=== PATIENT | male | born 1960 | race Caucasian/White ===

== ENCOUNTER 2016-03-10 08:27 | Outpatient (CLI) | payer MEDICARE ==
[~2016-03-10] VITALS: Ht 182.9 cm; Wt 79.5 kg
--- NOTE | ~2016-03-10 | HEMODYNAMI ---
PATIENT:JEANNIE DODSON MEDICAL RECORD: [id number] : 62 LOCATION:[facility] D.2105 ADMISSION DATE: 03/10/16 Generatedon:03/10/201618:16 Patient name: JEANNIE DODSON Patient #: [id number] SSN: D OB: 1960 Date of study: 03/10/2016 Page: Of Hemodynamic Procedure Report Patient Data Patient Demographics Procedure consent was obtained First Name: JEANNIE Gender: Male Last Name: IVORY : 1960 [facility] Initial: C Age: 55 year(s) Patient #: [id number] Race: Unknown Additional ID: [id number] Contact details Address: [address] [place] [address] State: [place] City: [place] Zip code: [address] Admission Admission Data Admission Date: 03/10/2016 Admission Time: 8:27 Room #: 2105 Weight (lbs.): 160 Weight (kg.): 72.57 Procedure Procedure Types Cath Procedure Peripheral Cath Diagnostic Procedure Cath Peripheral Liver TIPSS Procedure Description Procedure Date Procedure Date: 03/10/2016 Procedure Start Time: 14:25 Procedure Staff Name Function Robert Combs MD Performing Physician Rand Foreman HVAC SALES ENGINEER Additional personnel Jose Luis Bass MD Additional personnel Jagdish Andersen RT Scrub Kallie Evans RN Nurse Monserrat Nazario RT Method Consultant Monserrat Nazario RT Monitor Procedure Data Cath Procedure Fluoroscopy Diagnostic fluoroscopy Total fluoroscopy Time: time: 64.5 min 64.5 min Diagnostic fluoroscopy Total fluoroscopy dose: dose: 1988.48 mGy 1988.48 mGy Contrast Material Contrast Material Type Amount (ml) Isovue 300 200 Diagnostic catheters Device Type Used For End Catheter Placement Merit UHF Pigtail VESSEL SIZING 5Fr 65CM catheter Merit Impress KA2 5Fr 65CM catheter Hemodynamics Rest Heart Rate: 105 (bpm) Snapshots Pre Cath Intra NCS Post Cath Vital Signs Time Heart Resp NIBP Rhythm Pain Sedation Rate (ipm) (mmHg) Status Level (bpm) 16:55:46 88 10 Measuring NSR 0 (11) , 10(A) No pain 16:57:10 89 10 Time NSR 0 (11) , 10(A) Exceeded No pain 17:02:09 89 10 Measuring NSR 0 (11) , 10(A) No pain 17:03:33 88 10 Time NSR 0 (11) , 10(A) Exceeded No pain 17:08:32 89 10 Measuring NSR 0 (11) , 10(A) No pain 17:09:56 87 9 Time NSR 0 (11) , 10(A) Exceeded No pain 17:14:55 90 10 Measuring NSR 0 (11) , 10(A) No pain 17:16:17 90 10 Time NSR 0 (11) , 10(A) Exceeded No pain 17:20:17 90 10 Aborted NSR 0 (11) , 10(A) No pain 17:25:16 88 10 Measuring NSR 0 (11) , 10(A) No pain 17:26:40 89 10 Time NSR 0 (11) , 10(A) Exceeded No pain 17:30:11 88 10 Aborted NSR 0 (11) , 10(A) No pain 17:35:10 89 10 Measuring NSR 0 (11) , 10(A) No pain 17:36:34 88 9 Time NSR 0 (11) , 10(A) Exceeded No pain 17:41:33 89 9 Measuring NSR 0 (11) , 10(A) No pain 17:42:57 89 9 Time NSR 0 (11) , 10(A) Exceeded No pain 17:47:56 89 10 Measuring NSR 0 (11) , 10(A) No pain 17:49:20 88 9 Time NSR 0 (11) , 10(A) Exceeded No pain 17:54:19 91 10 Measuring NSR 0 (11) , 10(A) No pain 17:55:43 90 9 Time NSR 0 (11) , 10(A) Exceeded No pain 17:59:42 89 10 Aborted NSR 0 (11) , 10(A) No pain 18:04:41 90 9 Measuring NSR 0 (11) , 10(A) No pain 18:06:05 90 9 Time NSR 0 (11) , 10(A) Exceeded No pain 18:11:04 93 18 Measuring NSR 0 (11) , 10(A) No pain 18:11:23 93 15 Aborted NSR 0 (11) , 10(A) No pain 18:16:22 95 7 Measuring NSR 0 (11) , 10(A) No pain Procedure Log Time Note 13:17:38 Patient Weight : 160 kg 13:18:23 Use device set IR Diagnostic 13:18:25 Sterile Angiographic Pack opened to sterile field. 13:18:28 Bag Decanter opened to sterile field. 13:21:07 KIT, TRANSJUGULAR LIVER ACCESS R opened to sterile field. 13:21:08 TUBING, CONTRAST INJCTN HI PRES opened to sterile field. 13:21:09 [employer] 260L glide wire opened to sterile field. 13:21:11 [employer]s AWAN 260 guide wire opened to sterile field. 13:21:12 Micropuncture VSI 4FR kit opened to sterile field. 13:21:34 A [employer] F Pigtail VESSEL SIZING 5Fr 65CM catheter was advanced over the wire and used for . 13:30:01 Time tracking: Regular hours 13:40:20 [id number] 8FR CATH DRAIN TRAY opened to sterile field. 13:40:27 - 14:00:40 Physician arrived 14:04:54 STOPCOCK 3-WAY LARGE BORE opened to sterile field. 14:05:33 TUBING, CONTRAST INJCTN HI PRES opened to sterile field. 14:05:34 TUBING, CONTRAST INJCTN HI PRES opened to sterile field. 14:10:59 Final Timeout: patient, procedure, and site verified with staff and physician. All members of the team are in agreement. 14:11:57 Cook NASREENSON 145cm guide wire opened to sterile field. 14:12:08 Magali 5Fr OTW embolectomy catheter opened to sterile field. 14:22:09 Plan of Care:Hemodynamics will remain stable., Cardiac rhythm will remain stable., Comfort level will be maintained., Respiratory function will remain adequate., Patient/ family verbilizes understanding of procedure., Procedure tolerated without complication., Recovers from procedure without complications.. 14:22:11 Correct patient and procedure confirmed by team. 14::13 Signed procedure consent form obtained from patient. 14::15 ECG and BP/O2 sat monitors applied to patient. 14::17 Vital chart was started 14::18 Baseline sample Acquired. 14:22:19 Full Disclosure recording started 14::20 - 14::31 H&P Date Dictated: 03/10/2016 Within 30 days and on chart.. 14:22:34 Pre-procedure instructions explained to patient. 14:22:35 Pre-op teaching completed and patient verbalized understanding. 14:22:38 Family in waiting room. 14::41 Patient NPO since Midnight. 14:22:48 - 14:22:50 ----Pre-sedation anethsthesia assessment.---- 14::30 see anesthesia notes for monitoring of patient during procedure 14:23:33 - 14:23:58 --------ALL STOP TIME OUT------ 14:25:06 Physical assessment completed. ASA score P 3 - A patient with severe systemic disease as per Rand Foreman CRNA. 14:25:16 Sedation plan: General Anesthesia General Anesthesia 14:25:27 Procedure started. 14:25:40 Local anesthetic to right IJ vein with Lidocaine 1% by Robert Combs MD.INITIAL ACCESS ONLY 14:25:42 Venous access obtained using ultrasound guidance. 14:30:49 A Merit Impress KA2 5Fr 65CM catheter was advanced over the wire and used for . 14:31:28 CONNECTING TUBE FOR DRAINAGE BAG opened to sterile field. 14:38:49 Ashley Sci AMPLATZ Super stiff 260cm guide wire opened to sterile field . 14:49:35 Ashley Sci AMPLATZ Super stiff 180cm guide wire opened to sterile field . 15:41:38 KIT, TRANSJUGULAR LIVER ACCESS R opened to sterile field. 18:13:59 Procedure ended.(Physican Out) 18:14:19 Fluoroscopy time 64.50 minutes. 18:14:28 Flurop Dose total: 48 18:: Fluoroscopy dose: 1987.48 mGy 18:14:34 Contrast amount:Isovue 300 200ml. 18:14:36 Sharps counted by scrub and verified by R.N. 18:14:39 Procedure and supply charges have been captured, reviewed, submitted an d are correct. 18:16:40 Vital chart was stopped Device Usage Item Name Manufacture Quantity Catalog Hospital Part Current Min imal Lot# / Number Charge Number Stock Stock Serial# Code Sterile Cardinal 1 [id number] 5 Angiographic Health Pack Bag Decanter Microtek 1 [id number] 76307 [id number] 5 Medical Inc. KIT, Cook Medical 2 [id number] 729249 166153 5 TRANSJUGULAR LIVER ACCESS R TUBING, Merit 3 [id number] 112760 326333 405442 5 CONTRAST INJCTN Medical HI PRES Terumo ANGLE Terumo 1 [id number] 170965 441254 5 260L glide wire Cook AWAN 260 Cook Medical 1 [id number] 540648 055433 5 [id number] guide wire Micropuncture VSI VASCULAR 1 [id number] 764410 733969 5 VSI 4FR kit SOLUTIONS Merit F Merit 1 [id number] 042834 087649 5 Pigtail VESSEL Medical SIZING 5Fr 65CM catheter [id number] CareFusion 1 [id number] 911150 704723 5 8FR CATH DRAIN TRAY STOPCOCK 3-WAY Cook Medical 1 [id number] 920656 9396 474041 5 LARGE BORE Cook BENTSON Cook Medical 1 [id number] 492674 414354 5 [id number] 145cm guide wire Magali 5Fr OTW Ann 1 [id number] 178774 476532 774973 5 embolectomy Lifesciences catheter Merit Impress Merit 1 [id number] 569520 679787 5 KA2 5Fr 65CM Medical catheter CONNECTING TUBE Ashley 1 [id number] 844441 593701 517358 5 FOR DRAINAGE Scientific BAG Ashley Sci Ashley 1 [id number] 743229 854940 5 AMPLATZ Super Scientific stiff 260cm guide wire Ashley Sci Ashley 1 [id number] 383449 432876 5 AMPLATZ Super Scientific stiff 180cm guide wire Signature Audit [place] Stage Time Signature Unsigned Intra-Procedure 03/10/2016 Monserrat Nazario 6:16:37 PM RT(R) Signatures Monitor : Monserrat Nazario RT Signature : Date : Time : [address] [place] [address]
[~2016-03-10 08:27] MED LIST: ALDACTONE100 MG PO; ALDACTONE25 MG PO; BUMEX 1 MG TAB1 MG PO; BUMEX2 MG PO; CHRONULAC30 ML PO; FUROSEMIDE20 MG PO; GLUCOPHAGE1000 MG PO; LANTUS INSULIN10 ML SC; LANTUS SOL100 UNIT/1 SC
[2016-03-10 09:59] LABS: BASOPHILS 0.1 % (0.0-2.0); EOSINOPHILS 1.6 % (0-7); HEMOGLOBIN 12.4 g/dL (13.5-17.5); IMMATURE GRANULOCYTES 0.4 % (0-5); LYMPHOCYTES 14.6 % (15-50); MCHC 34.4 g/dL (31.0-37.0); MCV 95.7 fL (80.0-100.0); MEAN PLATELET VOLUME 10.1 fL (7.4-10.4); MONOCYTES 10.3 % (2-11); PLATELET COUNT 60 10x3/uL (130-400); RBC 3.76 10x6/uL (4.20-6.10); RDW 17.5 % (11.5-14.5); WBC 7.7 10x3/uL (4.8-10.8)
[2016-03-10 10:01] VITALS: BP 116/65; BMI 20.4
[2016-03-10 10:22] LABS: ALBUMIN 1.6 g/dL (3.4-5.0); ALKALINE PHOSPHATASE 517 U/L (46-116); ALT (SGPT) 59 U/L (10-68); CALC OSMOLALITY 277 mosm/kg (275-300); CALCIUM 7.7 mg/dL (8.5-10.1); CARBON DIOXIDE 24.3 mmol/L (21.0-32.0); CHLORIDE - SERUM 103 mmol/L (98-107); CREATININE - SERUM 0.8 mg/dL (0.6-1.3); GLUCOSE 294 mg/dL (74-106); POTASSIUM - SERUM 3.5 mmol/L (3.5-5.1); PROTEIN - SERUM 6.1 g/dL (6.4-8.2); SODIUM 132 mmol/L (136-145); UREA NITROGEN 19 mg/dL (7-18); eGFR NON AFRICAN AMERICAN > 90 mL/min (90-120)
[2016-03-10 10:32] LABS: APTT 29.3 SECONDS (22.8-39.4); INR 1.37 (0.85-1.17); PROTIME 16.8 SECONDS (11.6-15.0)
[2016-03-10 17:03] LABS: HEMATOCRIT 35.6 % (42.0-54.0); HEMOGLOBIN 12.2 g/dL (13.5-17.5)
--- NOTE | 2016-03-10 18:45 | NUR ---
MATEO SHAY APPLIED TO PATIENT PER DR NAM ORDER ON ADMIT TO RR
[2016-03-10 19:30] VITALS: BP 104/65
--- NOTE | 2016-03-10 22:51 | NUR ---
PT RECEIVED BACK FROM IR @ SHIFT CHANGE, EYES CLOSED, RESPIRATIONS EVEN AND UNLABORED, FAMILY AT BEDSIDE. PT EASILY ROUSABLE TO VERBAL STIMULI. V/S WNL. CONTINUE TO MONITOR PT.
--- NOTE | 2016-03-11 03:36 | NUR ---
PT AWAKE, ALERT, ORIENTED, REQUESTING FOOD. PT HAS ALREADY HAD 4 JELLO'S, 1 PUDDING, 2 POPCICLES, 1 DIET [place], AND NOW EATING NATE CRACKERS WITH PEANUT BUTTER AND 2% MILK. WHEN PATIENT ASKED FOR MORE FOOD, I CHECKED HIS FSBS WHICH WAS 416. DR. RAYMUNDO WITH RADIOLOGY WAS NOTIFIED, IN WHICH HE ORDERED HUMALOG LOW RESISTANCE S/S, PT GIVEN 10 UNITS RIGHT ARM SC. DR. RAYMUNDO CALLED BACK AND ALSO ORDERED TO RESTART PTS HOME MEDS, HOLD THE METFORMIN, AND HOLD HIS BUMEX. DR. RAYMUNDO ALSO ORDERED NS @ 75 CONTINUOUS. PT DENIES ANY NEEDS AT THIS TIME. CONTINUE TO MONITOR CLOSELY.
[2016-03-11 04:57] VITALS: BP 104/65; BMI 23.8
[2016-03-11 05:48] LABS: BASOPHILS 0.3 % (0.0-2.0); EOSINOPHILS 1.5 % (0-7); HEMOGLOBIN 10.8 g/dL (13.5-17.5); IMMATURE GRANULOCYTES 0.5 % (0-5); LYMPHOCYTES 13.3 % (15-50); MCH 32.2 pg (26.0-34.0); MCHC 33.8 g/dL (31.0-37.0); MCV 95.5 fL (80.0-100.0); MEAN PLATELET VOLUME 10.7 fL (7.4-10.4); MONOCYTES 9.7 % (2-11); NEUTROPHILS 74.7 % (40-80); PLATELET COUNT 60 10x3/uL (130-400); RBC 3.35 10x6/uL (4.20-6.10); RDW 17.1 % (11.5-14.5); WBC 7.3 10x3/uL (4.8-10.8)
[2016-03-11 06:19] LABS: ALBUMIN 1.4 g/dL (3.4-5.0); ALKALINE PHOSPHATASE 400 U/L (46-116); ALT (SGPT) 68 U/L (10-68); CALC OSMOLALITY 273 mosm/kg (275-300); CALCIUM 7.4 mg/dL (8.5-10.1); CARBON DIOXIDE 22.6 mmol/L (21.0-32.0); CHLORIDE - SERUM 101 mmol/L (98-107); CREATININE - SERUM 0.8 mg/dL (0.6-1.3); GLUCOSE 305 mg/dL (74-106); POTASSIUM - SERUM 3.7 mmol/L (3.5-5.1); PROTEIN - SERUM 5.3 g/dL (6.4-8.2); SODIUM 130 mmol/L (136-145); UREA NITROGEN 17 mg/dL (7-18); eGFR NON AFRICAN AMERICAN > 90 mL/min (90-120)
--- NOTE | 2016-03-11 06:31 | NUR ---
PT AWAKE, ALERT, ORIENTED, ASKING FOR BREAKFAST, DENIES ANY OTHER NEEDS. CONTINUE TO MONITOR CLOSELY.
[2016-03-11 08:00] VITALS: BP 98/60
--- NOTE | 2016-03-11 08:14 | NUR ---
AM ROUNDING- PT SITTING UP IN BED WITH EYES OPEN WATCHING TV. DENIES ANY NEED AT THIS TIME. PT IS CURRENTLY ASKING WHEN BREAKFAST IS, INFORMED HIM THAT IT WILL BE UP AROUND 0800. FSBS ACHS, 305 THIS AM THAT WAS COVERED BY MIX TECHNICIAN NURSE, REKHA. PT IS ALERT AND ORIENTED. IV SEEN TO RIGHT FOREARM WITH NS RUNNING AT 75CC. PT IS ON BEDREST WITH HOB ELEVATED TO 30 DEGREES. ON 3L OF 02 VIA NC. NO MONITOR. WILL CONTINUE TO MONITOR.
[2016-03-11 12:00] VITALS: BP 90/57
--- NOTE | 2016-03-11 14:27 | NUR ---
SCDS PUT ON PT ORDERED.
[2016-03-11 15:00] LABS: BASOPHILS 0.3 % (0.0-2.0); EOSINOPHILS 2.5 % (0-7); HEMATOCRIT 32.1 % (42.0-54.0); IMMATURE GRANULOCYTES 0.4 % (0-5); LYMPHOCYTES 13.3 % (15-50); MCH 32.7 pg (26.0-34.0); MCHC 34.3 g/dL (31.0-37.0); MCV 95.5 fL (80.0-100.0); MEAN PLATELET VOLUME 10.5 fL (7.4-10.4); MONOCYTES 8.8 % (2-11); NEUTROPHILS 74.7 % (40-80); PLATELET COUNT 54 10x3/uL (130-400); RBC 3.36 10x6/uL (4.20-6.10); RDW 17.2 % (11.5-14.5); WBC 7.5 10x3/uL (4.8-10.8)
[2016-03-11 16:00] VITALS: BP 94/50
--- NOTE | 2016-03-11 16:16 | NUR ---
PAGED DR. RAYMUNDO REGARDING PTS CRITICAL AMMONIA LEVEL, 94. SPOKE WITH DAVID IN THE OFFICE, STATED SHE WILL GET INTOUCH WITH DR. RAYMUNDO AND HAVE HIM CALL ME BACK. WILL CONTINUE TO MONITOR.
--- NOTE | 2016-03-11 16:53 | NUR ---
Patient Name: JEANNIE DODSON Admission Status: Elective Accout number: [id number] Admission Date: 03-10-2016 : 1960 Admission Diagnosis: Attending: ANTONIA Current LOS: 1 Anticipated DC Date: 03-11-2016 Planned Disposition: Home Primary Insurance: MEDICARE A & B Discharge Planning Comments: * Is the patient Alert and Oriented? Yes 0 * How many steps to enter\exit or inside your home? 3 0 * PCP DR. GROVER 0 * Pharm[facility] [place] 0 * Preadmission Environment Home with Family 0 * ADLs Independent 0 * Equipment Glucometer 0 * Other Equipment NO MEDICAL EQUIPMENT PROVIDER PREFERENCE 0 * List name and contact numbers for known caregivers / representatives who currently or will assist patient after discharge: MANUEL WICK, DAUGHTER IN LAW, 0 * Community resources currently utilized Home Health 0 * Please name any agencies selected above. NONE 0 * Additional services required to return to the preadmission environment? No 0 * Can the patient safely return to the preadmission environment? Yes 0 * Has this patient been hospitalized within the prior 30 days at any hospital? Yes 0 CM MET WITH PT IN ROOM TO DISCUSS DISCHARGE PLANNING AND NEEDS. PT REPORTS LIVING AT HOME INDEPENDENTLY WITH SON AND DAUGHTER IN LAW. PT HAS GLUCOMETER AND NO OTHER MEDICAL EQUIPMENT AND NO OUTSIDE SERVICES ASSISTING IN THE HOME. CM DISCUSSED AVAILABILITY OF HOME HEALTH, REHAB SERVICES AND MEDICAL EQUIPMENT. PT DENIES DISCHARGE NEEDS, REPORTS HIS DAUGTHER IN LAW IS HER TO PICK HIM UP FOR DISCHARGE HOME. IMPORTANT MESSAGE FROM MEDICARE PROVIDED AND EXPLAINED. Traveling Crane Operator: Rene Le
--- NOTE | 2016-03-11 18:30 | NUR ---
1814- PTS IV REMOVED WITH CATH TIP INTACT. D/C PAPERWORK EXPLAINED TO PT, SIGNED AND PLACED IN CHART. PT D/C VIA WHEELCHAIR.
[2016-03-15 11:09] VITALS: Ht 182.9 cm; Wt 79.5 kg
== END 2016-03-11 18:15 | disposition home or self-care (01) ==
LOC: OBSVTIME → D.SDCHOLD 08:27 → D.M2 08:27 → OBSVTIME 08:27 → D.SDCHOLD 08:27 → D.OPS 08:27 → D.M2 08:27 → D.SDCHOLD 10:30 → EDSTATUS 10:30 → D.M2 14:45 → D.SDCHOLD 14:45 → D.OPS 03-11 18:15 → D.M2 03-11 18:15
PROVIDERS: General Practice
PROC: B51V1ZZ Fluoroscopy of Other Veins using Low Osmolar Contrast (ICD-10-PCS; 2016-03-10)
PROC: 0W9G3ZZ Drainage of Peritoneal Cavity, Percutaneous Approach (ICD-10-PCS; principal; 2016-03-10 10:30)
DX: K74.60 Unspecified cirrhosis of liver (principal)

== ENCOUNTER 2016-03-14 23:20 | Inpatient (IN) | payer MEDICARE ==
[~2016-03-14] VITALS: Ht 182.9 cm; Wt 86.8 kg
--- NOTE | ~2016-03-14 | HEMODYNAMI ---
PATIENT:ZECHARIAH DODSON MEDICAL RECORD: [id number] : 62 LOCATION:D.MS [place] ADMISSION DATE: 03/15/16 Generatedon:03/15/201611:46 Patient name: ZECHARIAH DODSON Patient #: [id number] SSN: D OB: 1960 Date of study: 03/15/2016 Page: Of Hemodynamic Procedure Report Patient Data Patient Demographics Procedure consent was obtained First Name: ZECHARIAH Gender: Male Last Name: IVORY : 1960 [facility] Initial: C Age: 55 year(s) Patient #: [id number] Race: Unknown Additional ID: [id number] Contact details Address: [address] [place] [address] State: [place] City: [place] Zip code: [address] Admission Admission Data Admission Date: 03/15/2016 Admission Time: 1:14 Room #: D.2204 Procedure Procedure Types Cath Procedure Peripheral Cath Diagnostic Procedure Miscellaneous Procedure Description Procedure Date Procedure Date: 03/15/2016 Procedure Start Time: 11:14 Procedure Staff Name Function Zechariah Hawkins MD Performing Physician Jagdish Andersen RT Scrub Kallie Evans RN Nurse Procedure Medications Medication Administration Route Dosage Oxygen NC 3 l/min Fentanyl I.V. 50 mcg Fentanyl I.V. 50 mcg unlisted medication I.V. 50 g Fentanyl I.V. 50 mcg Hemodynamics Rest Pre Cath Intra NCS Post Cath Vital Signs Time Heart Resp SPO2 NIBP Rhythm Pain Sedation Rate (ipm) (%) (mmHg) Status Level (bpm) 11:01:10 104 18 94 105/68(87) NSR 0 (11) 10(A) , No pain 11:05:11 104 16 97 101/70(89) NSR 0 (11) 10(A) , No pain 11:09:09 102 12 98 102/75(87) NSR 0 (11) 10(A) , No pain 11:13:08 103 19 98 106/67(86) NSR 0 (11) 10(A) , No pain 11:17:08 105 14 97 102/69(86) NSR 0 (11) 10(A) , No pain 11:21:08 105 12 97 105/69(84) NSR 0 (11) 10(A) , No pain 11:25:07 103 8 98 105/67(84) NSR 0 (11) 10(A) , No pain 11:29:11 104 9 98 98/61(77) NSR 0 (11) 10(A) , No pain 11:33:11 104 14 99 98/63(75) NSR 0 (11) 10(A) , No pain 11:37:11 106 16 98 101/64(81) NSR 0 (11) 10(A) , No pain 11:41:12 103 15 98 100/61(72) NSR 0 (11) 10(A) , No pain 11:45:14 104 14 97 99/61(79) NSR 0 (11) 10(A) , No pain Medications Time Medication Route Dose Verified Delivered Reason Notes Effective ness by by 11:02:22 Oxygen NC 3 Kallie Kallie used for l/min Cristina Cristina baker chef RN 11:13:44 Fentanyl I.V. 50 Kallie Kallie for mcg Cristina Cristina sedation RN RN 11:17:53 Fentanyl I.V. 50 Kallie Kallie for mcg Cristina Cristina sedation RN RN 11:29:49 albumin I.V. 50 g Kallie Kallie Per Cristina Cristina physician RN RN 11:42:20 Fentanyl I.V. 50 Kallie Kallie for mcg Cristina Cristina sedation RN fixed income analyst Log Time Note 10:57:39 Jagdish Andersen RT (R) (CV) sent for patient. Start room use. 10:57:41 Time tracking: Regular hours 10:57:48 Plan of Care:Hemodynamics will remain stable., Cardiac rhythm will remain stable., Comfort level will be maintained., Respiratory function will remain adequate., Patient/ family verbilizes understanding of procedure., Procedure tolerated without complication., Recovers from procedure without complications.. 10:58:02 Patient arrived from Med/Surg to IR. Patient remains on bed/stretcher for procedure. 10:58:03 Correct patient and procedure confirmed by team. 10:58:05 Signed procedure consent form obtained from patient. 10:58:06 ECG and BP/O2 sat monitors applied to patient. 10:58:08 - 10:58:14 H&P Date Dictated: 03/15/2016 Within 30 days and on chart.. 10:58:15 Pre-procedure instructions explained to patient. 10:58:16 Pre-procedure instructions explained to patient. 10:58:16 Pre-op teaching completed and patient verbalized understanding. 10:58:20 Family in waiting room. 10:58:26 Patient NPO since Midnight. 10:58:45 Is patient on blood thinner?No 10:58:47 Patient diabetic? Yes. 10:58:49 ----Pre-sedation anethsthesia assessment.---- 10:58:50 ----Pre-sedation anethsthesia assessment.---- 10:58:53 Snore? Yes 10:58:55 Sleep apnea? No 10:58:56 Deviated septum? No 10:58:57 Opens mouth fully? Yes 10:58:59 Sticks out tongue? Yes 10:59:02 Airway obstruction? No ? 10:59:04 Dentures? No ? 10:59:09 Sharps counted by scrub and verified by R.N. 10:59:09 Alarms reviewed by R. N. 10:59:16 Right abdomen area was prepped with chlora-prep and draped in sterile fashion 10:59:23 Patient pain scale 0/10 no pain. 10:59:32 IV patent on arrival in right hand with 0.9% NaCl at [facility]. 11:00:07 Vital chart was started 11:00:19 Rhythm: sinus rhythm 11:02:22 Oxygen 3 l/min NC was given by Kallie Evans RN; used for procedure; 11:13:06 Physician arrived 11:13:07 --------ALL STOP TIME OUT------ 11:13:08 Final Timeout: patient, procedure, and site verified with staff and physician. All members of the team are in agreement. 11:13:15 Right Arm site verified by team. 11:13:20 Physical assessment completed. ASA score P 3 - A patient with severe systemic disease as per Zechariah Hawkins MD. 11:13:26 Sedation plan: IV Moderate Sedation Versed, Fentanyl 11:13:44 Fentanyl 50 mcg I.V. was given by Kallie Evans RN; for sedation; 11:14:19 Procedure started. 11:14:20 Full Disclosure recording started 11:14:29 Local anesthetic to Abdominal area with Lidocaine 2% by Zechariah Hawkins MD.INITIAL ACCESS ONLY 11:17:53 Fentanyl 50 mcg I.V. was given by Kallie Evans RN; for sedation; 11:29:49 albumin 50 g I.V. was given by Kallie Evans RN; Per physician; 11:42:20 Fentanyl 50 mcg I.V. was given by Kallie Evans RN; for sedation; 11:44:29 11.5 liters drained 11:44:41 Dermabond Pen opened to sterile field. 11:44:42 [id number] 8FR CATH DRAIN TRAY opened to sterile field. 11:44:54 Procedure ended.(Physican Out) 11:45:07 Sharps counted by scrub and verified by R.N. 11:45:13 Insertion/operative site no bleeding no hematoma. 11:45:18 Post-op/insertion site Right Abdominal area dressed using a 4 x 4 and Tegaderm. 11:45:24 Post Abdominal area:stable 11:45:33 Post-procedure physical assessment completed. ASA score P 3 - A patient with severe systemic disease as per Zechariah Hawkins MD. 11:45:36 Post procedure rhythm: unchanged. 11:45:38 Post procedure instruction explained to patient.Patient verbalizes understanding. 11:45:41 Procedure and supply charges have been captured, reviewed, submitted an d are correct. 11:45:43 Report given to Med/Surg. 11:45:52 Patient transfered to Med/Surg with Bed. 11:46:48 Vital chart was stopped Device Usage Item Name Manufacture Quantity Catalog Hospital Part Current Minimal Lot# / Number Charge Number Stock Stock Serial# Code Dermabond Pen Ethicon 1 [id number] CareFusion 1 [id number] 5 8FR CATH DRAIN TRAY Signature Audit [place] Stage Time Signature Unsigned Intra-Procedure 03/15/2016 Jagdish 11:46:45 AM Ganesh RT (R) (CV) [facility] [address] [id number]
--- NOTE | 2016-03-15 03:15 | NUR ---
RECIEVED PT TO FLOOR VIA WHEELCHAIR. VSS. PT IS ALERT AND ORIENTED AND ABLE TO VERBALIZE NEEDS. IV IS PATENT AND SALINE LOC AT THIS TIME. PT STATES PAIN IS 9/10. O2 @ 2 PER NASAL CANNULA. PT ABDOMINAL MEASUREMENT AT THIS TIME=47". OBTAINED PT WEIGHT PBZK=911.4. PT WENT TO BATHROOM TO VOID AND HAD A BOWEL MOVEMENT. PT IS ORIENTED TO ROOM AND USE OF CALL LIGHT. ADMISSION ASSESSMENT COMPLETED. PT TO HAVE FAMILY MEMBER BRING CURRENT LIST OF MEDICATIONS DUE TO HIM NOT REMEMBERING THE DOSES. NO NEEDS ARE VERBALIZED AT THIS TIME. WILL CONTINUE TO MONITOR. SIDE RAILS ARE UP X 2. BED IS IN LOWEST POSITION. CALL LIGHT IS WITHIN REACH.
[2016-03-15 03:29] VITALS: BP 108/79; BMI 26.0
[2016-03-15 05:00] VITALS: BP 110/71
[2016-03-15 08:15] VITALS: BP 101/63
--- NOTE | 2016-03-15 08:35 | NUR ---
SCHEDULED MEDICATIONS ADMINISTERED AT THIS TIME. ASSESSMENT PERFORMED PER FLOWSHEET. OXYGEN ON 2L VIA NC. ABDOMEN TIGHT AND DISTENDED WITH BOWEL SOUNDS ACTIVE X4. IV TO RIGHT HAND PATENT WITH BRISK BLOOD RETURN PRESENT. DENIES FURTHER NEEDS AT THIS TIME. CALL LIGHT IN REACH, WILL CONTINUE WITH PLAN OF CARE.
--- NOTE | 2016-03-15 09:31 | NUR ---
PRN MORPHINE 2MG ADMINISTERED AT THIS TIME FOR PAIN 7/10 ABDOMINALLY. PT DENIES FURTHER NEEDS. CALL LIGHT IN REACH, WILL CONTINUE WITH PLAN OF CARE.
[2016-03-15 09:40] LABS: BASOPHILS 0.5 % (0.0-2.0); EOSINOPHILS 2.9 % (0-7); HEMATOCRIT 36.2 % (42.0-54.0); HEMOGLOBIN 12.5 g/dL (13.5-17.5); IMMATURE GRANULOCYTES 1.2 % (0-5); LYMPHOCYTES 17.7 % (15-50); MCH 32.8 pg (26.0-34.0); MCHC 34.5 g/dL (31.0-37.0); MEAN PLATELET VOLUME 10.4 fL (7.4-10.4); MONOCYTES 9.4 % (2-11); NEUTROPHILS 68.3 % (40-80); PLATELET COUNT 63 10x3/uL (130-400); RBC 3.81 10x6/uL (4.20-6.10); RDW 17.3 % (11.5-14.5); WBC 7.6 10x3/uL (4.8-10.8)
[2016-03-15 10:15] LABS: INR 1.33 (0.85-1.17); PROTIME 16.4 SECONDS (11.6-15.0)
[2016-03-15 10:16] LABS: APTT 36.4 SECONDS (22.8-39.4)
[2016-03-15 10:25] LABS: ALBUMIN 1.6 g/dL (3.4-5.0); ALKALINE PHOSPHATASE 508 U/L (46-116); ALT (SGPT) 74 U/L (10-68); CALC OSMOLALITY 266 mosm/kg (275-300); CALCIUM 7.3 mg/dL (8.5-10.1); CARBON DIOXIDE 23.6 mmol/L (21.0-32.0); CHLORIDE - SERUM 98 mmol/L (98-107); CREATININE - SERUM 0.7 mg/dL (0.6-1.3); GLUCOSE 256 mg/dL (74-106); MAGNESIUM - SERUM 1.5 mg/dL (1.8-2.4); POTASSIUM - SERUM 3.7 mmol/L (3.5-5.1); PROTEIN - SERUM 5.9 g/dL (6.4-8.2); SODIUM 129 mmol/L (136-145); UREA NITROGEN 11 mg/dL (7-18); eGFR NON AFRICAN AMERICAN > 90 mL/min (90-120)
--- NOTE | 2016-03-15 10:50 | NUR ---
BEING TAKEN TO IR AT THIS TIME FOR PARACENTESIS. CONSENT OBTAINED BY RADIOLOGY STAFF.
[2016-03-15 11:09] VITALS: Ht 182.9 cm; Wt 86.8 kg
--- NOTE | 2016-03-15 11:56 | NUR ---
RECEIVED BACK TO ROOM 2204 FROM IR AT THIS TIME. JESSICA REYES REPORTED THAT THEY 11.5L WAS REMOVED DURING PARACENTESIS. DRESSING TO RIGHT ADDOMEN C/D/I. ABDOMEN TENDER AND SOFT NOW. PT PROVIDED WITH CHOCOLATE ENSURE. DENIES PAIN AT THIS TIME. CALL LIGHT IN REACH AND VITAL SIGNS OBTAINED. BP 97/58, PULSE 107, RESPIRATIONS 18, OXYGEN SATURATION 97% ON ROOM AIR AND TEMPERATURE 97.5 AXILLARY.
[2016-03-15 12:22] VITALS: BP 97/58
--- NOTE | 2016-03-15 14:00 | NUR ---
PT TO D/C HOME. PT IS NOT CURRENT WITH HOME HEALTH AND JESSICA ROMERODIRECTOR ERP MADE AWARE.
[2016-03-15] MEDS ORDERED: CHRONULAC30 ML PO (14:23)
--- NOTE | 2016-03-15 16:13 | NUR ---
CM REASSESSMENT NOTE: PATIENT CHOSE [facility] AND THE L[facility]I FORM WAS SIGNED. REFERRAL SENT. PATIENT IS D/C HOME TODAY BY PRIVATE CAR.
--- NOTE | 2016-03-15 16:19 | NUR ---
Patient Name: JEANNIE DODSNO Admission Status: ER Accout number: [id number] Admission Date: 03-15-2016 : 1960 Admission Diagnosis: Attending: STEVEN Current LOS: 1 Anticipated DC Date: Planned Disposition: Primary Insurance: MEDICARE A & B Discharge Planning Comments: CM MET WITH PATIENT AND DAUGHTER IN LAW (MANUEL) REGARDING D/C NEEDS AND PLANS. DIL STATED THERE ARE 4 STEPS W/RAILS TO ENTER HOME AND NO STAIRS INSIDE. PATIENT IS PARTIAL DEPENDENT FOR HIS CARE. PATIENT HAS A WALKER, AND SHOWER CHAIR AT HOME. PATIENTS PCP IS DR. GROVER AND PHARMACY IS [facility] AT [place]. PATIENT CHOSE [facility] AND SIGNED THE [facility] FORM. REFERRAL HAS BEEN SENT. PATIENTS DIL WILL DRIVE HIM HOME AT DISCHARGE. PCP DR. [facility]ILLY [facility] [place]- [phone] MANUEL (DIL) [phone] Formulator: Lisa Donald
[2016-03-15 16:45] VITALS: BP 96/54
[2016-03-15] MEDS ORDERED: ATIVAN0.5 MG PO (17:29)
--- NOTE | 2016-03-15 18:35 | NUR ---
D/C HOME AT THIS TIME WITH DAUGHTER IN LAW. IV TO RIGHT HAND D/C WITH CATH TIP INTACT. WAGE AND HOUR INVESTIGATOR REMOVED AND RETURNED TO MONITOR STATION.
== END 2016-03-15 18:35 | disposition home health service (06) | DRG 442 ==
LOC: D.ER 23:20 → D.MS 03-15 01:14
PROVIDERS: Family Medicine; Specialist; ADMIT Family Medicine Adult Medicine
PROC: 0W9G3ZZ Drainage of Peritoneal Cavity, Percutaneous Approach (ICD-10-PCS; principal; 2016-03-15 11:10)
DX: K72.90 Hepatic failure, unspecified without coma (principal); R18.8 Other ascites; K74.60 Unspecified cirrhosis of liver; J44.9 Chronic obstructive pulmonary disease, unspecified; E11.65 Type 2 diabetes mellitus with hyperglycemia; Z79.4 Long term (current) use of insulin; Z87.891 Personal history of nicotine dependence

== ENCOUNTER 2016-03-15 12:49 | Outpatient (CLI) | payer MEDICARE ==
[2016-03-15] MEDS ORDERED: CHRONULAC30 ML PO (14:23)
[2016-03-15] MEDS ORDERED: ATIVAN0.5 MG PO (17:29)
[2016-03-18 10:50] VITALS: BMI 19.6
== END 2016-03-15 23:59 | disposition short-term general hospital (02) ==
LOC: D.OPS 12:49
DX: K72.90 Hepatic failure, unspecified without coma (principal); R18.8 Other ascites; K74.60 Unspecified cirrhosis of liver

== ENCOUNTER 2016-03-17 06:06 | Inpatient (IN) | payer MEDICARE ==
[~2016-03-17] VITALS: Ht 182.9 cm; Wt 81.5 kg
--- NOTE | ~2016-03-17 | HEMODYNAMI ---
PATIENT:ZECHARIAH DODSON MEDICAL RECORD: [id number] : 62 LOCATION:[facility] D.230 ADMISSION DATE: 03/17/16 Generatedon:03/18/201611:38 Patient name: ZECHARIAH DODSON Patient #: [id number] SSN: D OB: 1960 Date of study: 03/18/2016 Page: Of Hemodynamic Procedure Report Patient Data Patient Demographics Procedure consent was obtained First Name: ZECHARIAH Gender: Male Last Name: IVORY : 1960 [facility] Initial: C Age: 55 year(s) Patient #: [id number] Race: Unknown Additional ID: [id number] Contact details [address]: [address] [place] [address] State: [place] City: [place] Zip code: [address] Admission Admission Data Admission Date: 03/17/2016 Admission Time: 9:33 Room #: [facility] Procedure Procedure Types Cath Procedure Peripheral Cath Diagnostic Procedure Miscellaneous Procedure Description Procedure Date Procedure Date: 03/18/2016 Procedure Start Time: 10:44 Procedure Staff Name Function Zechariah Hawkins MD Performing Physician Kallie Link RT Scrub Brittany Harding RN Nurse Kallie Evans RN Nurse Jagdish Andersen RT Monitor Procedure Data Cath Procedure Fluoroscopy Diagnostic fluoroscopy Total fluoroscopy Time: 9.2 time: 9.2 min min Diagnostic fluoroscopy Total fluoroscopy dose: dose: 374.27 mGy 374.27 mGy Contrast Material Contrast Material Type Amount (ml) Isovue 300 86 Diagnostic catheters Device Type Used For End Catheter Placement [facility] Pigtail VESSEL SIZING 5Fr 65CM catheter Hemodynamics Rest Heart Rate: 95 (bpm) Pressure Samples Time Site Value (mmHg) Purpose Heart Use Rate(bpm) 10:56 Portal (27) Snapshot 95 11:12 Portal (24) Snapshot 97 11:15 RA 17/(15) Snapshot 96 Snapshots Pre Cath Intra NCS Post Cath Procedure Log Time Note 9:57:49 Time tracking: Regular hours 9:57:52 Jagdish Andersen RT (R) (CV) sent for patient. Start room use. 9:58:00 Time tracking: Regular hours 9:58:06 Plan of Care:Hemodynamics will remain stable., Cardiac rhythm will remain stable., Comfort level will be maintained., Respiratory function will remain adequate., Patient/ family verbilizes understanding of procedure., Procedure tolerated without complication., Recovers from procedure without complications.. 9:58:13 Patient received from Med/Surg to IR Alert and oriented. Tansferred to table in Supine position. 9:58:14 Correct patient and procedure confirmed by team. 9:58:17 Signed procedure consent form obtained from patient. 9:58:18 ECG and BP/O2 sat monitors applied to patient. 9:58:19 - 9:58:20 Full Disclosure recording started 9:58:24 H&P Date Dictated: 03/18/2016 Within 30 days and on chart.. 9:58:25 Pre-procedure instructions explained to patient. 9:58:26 Pre-procedure instructions explained to patient. 9:58:26 Pre-op teaching completed and patient verbalized understanding. 9:58:27 Family in waiting room. 9:58:30 Patient NPO since Midnight. 9:58:33 - 9:58:53 SEE ANESTHESIA NOTE FOR PRE GENERAL ANESTHESIA 9:58:55 - 9:59:01 Use device set IR Diagnostic 9:59:02 Sterile Angiographic Pack opened to sterile field. 9:59:03 Bag Decanter opened to sterile field. 9:59:04 Acist Manifold opened to sterile field. 9:59:04 Acist Hand Control opened to sterile field. 9:59:05 Acist Syringe opened to sterile field. 10:10:17 Warm blankets applied, and chilango hugger turned on for patient comfort. 10:18:12 See anesthesia records for all VS, LOC, OXYGEN, AND MEDS GIVEN. 10:27:27 Right NECK area was prepped with chlora-prep and draped in sterile fashion 10::33 Right abdomen area was prepped with chlora-prep and draped in sterile fashion 10::37 Physician arrived 10::38 --------ALL STOP TIME OUT------ 10::39 Final Timeout: patient, procedure, and site verified with staff and physician. All members of the team are in agreement. 10:28:12 Right neck site verified by team. 10:28:17 Right abdomen site verified by team. 10:28:23 Physical assessment completed. ASA score P 4 - A patient with severe systemic disease that is a constant threat to life as per Zechariah Hawkins MD. 10:28:30 Sedation plan: TIVA Propofol 10:30:28 FSBS 60. 1/2 AMP D50 GIVEN PER ANESTHESIA. 10:31:01 Local anesthetic to Abdominal area with Lidocaine 1% by Zechariah Hawkins MD.INITIAL ACCESS ONLY 10:31:08 Procedure started. 10:35:08 Giovani AWAN 260 guide wire opened to sterile field. 10:35:08 Terumo ANGLE 180L glide wire opened to sterile field. 10:35:09 Terumo ANGLE 180L glide wire opened to sterile field. 10:35:09 Giovani DOC .035 guide wire opened to sterile field. 10:35:09 PERCUTANEOUS ENTRY 19GA needle opened to sterile field. 10:35:10 Encore Inflation Device opened to sterile field. 10:35:10 TUBING, CONTRAST INJCTN HI PRES opened to sterile field. 10:35:11 TUBING, CONTRAST INJCTN HI PRES opened to sterile field. 10:35:11 KIT, TRANSJUGULAR LIVER ACCESS R opened to sterile field. 10:35:27 A Merit [facility] Pigtail VESSEL SIZING 5Fr 65CM catheter was advanced over the wire and used for . 10:40:[address]035 145 glide wire opened to sterile field. 10:40:10 Terumo 5FR Physician/Ophthalmologist H1 100CM glide catheter opened to sterile field. 10:44:16 [place] Sci AMPLATZ Super stiff 180cm guide wire opened to sterile field . 10:52:52 [place] Sci AMPLATZ Super stiff 260cm guide wire opened to sterile field . 10:56:19 Zero performed for pressure channel P1 10:56:23 Zero performed for pressure channel P1 11:01:00 Inflation number: 1 A Cordis Powerflex Pro 8.0 x 40 x 80cm balloon was prepped and advanced across the Undefined1, then inflated to 0 SHASHA for 0:00 (min:sec). 11:05:41 VIATORR 10x6 stent was deployed across Undefined1 . 11:12:02 Zero performed for pressure channel P1 11:15:05 Zero performed for pressure channel P1 11:22:31 Procedure ended.(Physican Out) 11:23:09 Fluoroscopy time 09.20 minutes. 11:23:17 Fluoroscopy dose: 374.27 mGy 11:23:17 Flurop Dose total: 374.27 11:23:23 Contrast amount:Isovue 300 86ml. 11:23:46 Sharps counted by scrub and verified by R.N. 11:24:04 Insertion/operative site no bleeding no hematoma. 11:24:13 Post-op/insertion site Right Jugular vein dressed using a 4 x 4 and Tegaderm. 11:24:18 Post-op/insertion site Right Abdominal area dressed using a 4 x 4 and Tegaderm. 11:24:28 Post right IJ vein:stable 11:24:33 Post Abdominal area:stable 11:24:38 Post-procedure physical assessment completed. ASA score P 4 - A patient with severe systemic disease that is a constant threat to life as per Zechariah Hawkins MD. 11:24:42 Post procedure rhythm: unchanged. 11:24:56 SEE ANESTHESIA NOTE FOR POST GENERAL 11:24:59 Post procedure instruction explained to patient.Patient verbalizes understanding. 11:26:26 2.4 LITERS DRAINED FROM ABD 11:37:17 Procedure and supply charges have been captured, reviewed, submitted an d are correct. 11:37:21 Report given to Recovery Room. 11:37:23 Report given to ICU. 11:37:28 Patient transfered to Recovery Room with Bed. Intervention Summary Intervention Notes Time ActionType Lesion and Equipment Action# Pressure Duration Attributes Used 11:01:00 Inflate Undefined1 Cordis 1 0 00:00 balloon Powerflex Pro 8.0 x 40 x 80cm balloon 11:05:41 Deploy self Undefined1 VIATORR 1 expanding 10x6 stent stent Device Usage Item Name Manufacture Quantity Catalog Hospital Part Current Minimal Lot# / Number Charge Number Stock Stock Serial# Code Sterile Cardinal 1 [id number] 476335 5 Angiographic Health Pack Bag Decanter Microtek 1 [id number] 434930 23192 868959 5 Medical Inc. Acist Acist 1 72550 863267 724374 442076 5 Manifold Medical Systems Inc Acist Hand Acist 1 83903 880231 261822 960982 5 Control Medical Systems Inc Acist Acist 1 44476 024384 991473 256395 20 Syringe Medical Systems Inc Cook AWAN [facility] 1 [id number] 299503 024926 5 [id number] 260 guide wire Terumo ANGLE Terumo 2 [id number] 293300 547767 5 180L glide wire [facility] Cook Medical 1 J34700 024108 503568 5 [id number] .035 guide wire PERCUTANEOUS [facility] 1 L08495 397920 220293 5 ENTRY 19GA needle Encore [place] 1 [id number] 380288 365615 696637 5 [id number] Inflation Scientific Device TUBING, Merit 2 [id number] 633425 391691 876885 5 CONTRAST Medical INJCTN HI PRES KIT, Cook [facility] 1 X30855 175500 695543 5 [id number] TRANSJUGULAR LIVER ACCESS R [facility] Merit 1 [id number] 473675 702637 5 Pigtail Medical VESSEL SIZING 5Fr 65CM catheter [facility] 1 R85148 844807 526977 [id number] .035 145 glide wire Terumo 5FR [place] 1 [id number] 343170 346829 5 Physician/Ophthalmologist Scientific H1 100CM glide catheter [place] [employer] [place] 1 [id number] 025126 478154 5 [id number] AMPLATZ Scientific Super stiff 180cm guide wire [place] [employer] [place] 1 [id number] 107097 309094 5 AMPLATZ Scientific Super stiff 260cm guide wire Cordis Cardinal 1 [id number] 409361 669164 412241 5 Powerflex Health Pro 8.0 x 40 x 80cm balloon VIATORR 10x6 [place] 1 [id number] 447467 949168 853894 5 stent Signature Audit [place] [facility] Time Signature Unsigned Intra-Procedure 03/18/2016 Jagdish 11:37:53 AM Ganesh RT (R) (CV) Signatures Monitor : Jagdish Signature : Ganesh RT Date : Time : [address] [place] [address]
[~2016-03-17 06:06] MED LIST changes: +ATIVAN0.5 MG PO
[2016-03-17 06:44] LABS: BASOPHILS 0.2 % (0.0-2.0); EOSINOPHILS 0.5 % (0-7); HEMATOCRIT 35.7 % (42.0-54.0); HEMOGLOBIN 12.5 g/dL (13.5-17.5); IMMATURE GRANULOCYTES 0.8 % (0-5); LYMPHOCYTES 9.5 % (15-50); MCH 33.2 pg (26.0-34.0); MCV 94.9 fL (80.0-100.0); MEAN PLATELET VOLUME 10.6 fL (7.4-10.4); PLATELET COUNT 51 10x3/uL (130-400); RBC 3.76 10x6/uL (4.20-6.10); RDW 17.6 % (11.5-14.5)
[2016-03-17 06:48] LABS: WBC 10.1 10x3/uL (4.8-10.8)
[2016-03-17 07:04] LABS: ALBUMIN 1.8 g/dL (3.4-5.0); ALKALINE PHOSPHATASE 446 U/L (46-116); ALT (SGPT) 70 U/L (10-68); CALC OSMOLALITY 266 mosm/kg (275-300); CALCIUM 7.4 mg/dL (8.5-10.1); CARBON DIOXIDE 24.7 mmol/L (21.0-32.0); CHLORIDE - SERUM 100 mmol/L (98-107); CREATININE - SERUM 0.8 mg/dL (0.6-1.3); GLUCOSE 114 mg/dL (74-106); PROTEIN - SERUM 5.9 g/dL (6.4-8.2); SODIUM 131 mmol/L (136-145); UREA NITROGEN 20 mg/dL (7-18); eGFR NON AFRICAN AMERICAN > 90 mL/min (90-120)
--- NOTE | 2016-03-17 10:00 | NUR ---
RECEIVED TO ROOM 2205 VIA WC FROM ER. AWAKE AND ALERT. ORIENTED TO SELF AND TIME AND PLACE WITH CUEING. EXPRESSED HE DOESN'T KNOW WHY HE'S HERE. EXPLAINED ELEVATED AMMONIA LEVEL. SKIN INTACT DENIES NEEDS.
[2016-03-17 10:21] VITALS: BP 92/48; BMI 19.7
[2016-03-17 12:37] VITALS: BP 103/62
--- NOTE | 2016-03-17 15:20 | NUR ---
FSBS 187. GIVEN SCHEDULED LEVIMIER. FAMILY IN ROOM. ATE ALL OF LUNCH TRAY.
[2016-03-17 16:00] LABS: APPEARANCE CLEAR (CLEAR); BILIRUBIN NEGATIVE (NEGATIVE); COLOR YELLOW (YELLOW); GLUCOSE NEGATIVE (NEGATIVE); KETONE NEGATIVE (NEGATIVE); LEUKOCYTE ESTERASE NEGATIVE (NEGATIVE); NITRITE NEGATIVE (NEGATIVE); PROTEIN NEGATIVE (NEGATIVE); UROBILINOGEN NORMAL (NORMAL)
--- NOTE | 2016-03-17 17:00 | NUR ---
FSBS 215. GIVEN 4 UNITS HUMALOG SUBQ PER SS. EATING SUPPER. NO C/O VOICED. DENIES NEEDS. NO CHANGES NOTED.
[2016-03-17 17:29] VITALS: BP 100/52
--- NOTE | 2016-03-17 19:19 | NUR ---
PATIENT IN SEMI-FOWLERS POSITION. BROUGHT PATIENT PAIN MEDICATION WHEN IT WAS DUE PER HIS REQUEST.
[2016-03-17 21:00] VITALS: BP 103/66
[2016-03-18] VITALS (17 sets, daily range): BP systolic 73–102; BP diastolic 45–63; Ht 182.9 cm; Wt 81.5 kg
[2016-03-18 05:20] LABS: BASOPHILS 0.3 % (0.0-2.0); HEMATOCRIT 32.4 % (42.0-54.0); HEMOGLOBIN 11.3 g/dL (13.5-17.5); IMMATURE GRANULOCYTES 0.5 % (0-5); LYMPHOCYTES 16.8 % (15-50); MCH 33.1 pg (26.0-34.0); MCHC 34.9 g/dL (31.0-37.0); MEAN PLATELET VOLUME 10.4 fL (7.4-10.4); MONOCYTES 7.7 % (2-11); NEUTROPHILS 73.7 % (40-80); RBC 3.41 10x6/uL (4.20-6.10); RDW 17.9 % (11.5-14.5); WBC 7.7 10x3/uL (4.8-10.8)
[2016-03-18 05:36] LABS: APTT 33.5 SECONDS (22.8-39.4); INR 1.44 (0.85-1.17); PROTIME 17.5 SECONDS (11.6-15.0)
[2016-03-18 05:49] LABS: PLATELET COUNT 64 10x3/uL (130-400)
[2016-03-18 06:04] LABS: ALBUMIN 1.7 g/dL (3.4-5.0); ALKALINE PHOSPHATASE 418 U/L (46-116); ALT (SGPT) 67 U/L (10-68); BILIRUBIN - TOTAL 1.81 mg/dL (0.2-1.3); CALCIUM 7.3 mg/dL (8.5-10.1); CARBON DIOXIDE 27.8 mmol/L (21.0-32.0); CHLORIDE - SERUM 105 mmol/L (98-107); PROTEIN - SERUM 5.5 g/dL (6.4-8.2); SODIUM 139 mmol/L (136-145); eGFR NON AFRICAN AMERICAN 83 mL/min (90-120)
[2016-03-18 06:05] LABS: CALC OSMOLALITY 276 mosm/kg (275-300); GLUCOSE 70 mg/dL (74-106); UREA NITROGEN 14 mg/dL (7-18)
[2016-03-18 06:25] LABS: POTASSIUM - SERUM 2.2 mmol/L (3.5-5.1)
--- NOTE | 2016-03-18 08:00 | NUR ---
RESTING QUIETLY IN BED. FAMILY AT [facility]. A/O X3. LUNGS ARE CLEAR BILATERALLY, NO COUGH NOTED. SKIN IS INTACT WITHOUT REDNESS BUT 3-4 PLUS EDEMA NOTED TO FEET. WILL MONITOR. SECOND IV SITED TO LEFT FOREARM AFTER 2 ATTEMPTS WITH 20G.
--- NOTE | 2016-03-18 09:00 | NUR ---
TRANSFUSION IN PROGRESS.
--- NOTE | 2016-03-18 09:45 | NUR ---
OFF UNIT VIA BED FOR TIPS PROCEDURE.
[2016-03-18 10:25] LABS: MAGNESIUM - SERUM 1.4 mg/dL (1.8-2.4); PHOSPHOROUS 4.3 mg/dL (2.5-4.9)
--- NOTE | 2016-03-18 10:41 | HP ---
PATIENT: JEANNIE DODSON MEDICAL RECORD: [id number] ACCOUNT: [id number] LOCATION:D.MS [id number] : 62 ADMISSION DATE: 03/17/16 HISTORY AND PHYSICAL EXAMINATION HISTORY OF PRESENT ILLNESS: Mr. Dodson is a 55-year-old white male patient that is brought in by family after being found confused at home. He has a known history of liver failure and is actually scheduled to come in tomorrow for TIPS. He has to have frequent paracentesis. He just had 13 liters removed on Tuesday. He was found to have elevation of his ammonia, above his normal baseline. Ammonia today was 154. He normally runs about 80 or 90 without any issues. Sodium was 131, blood sugar 114, which are both improved for him also. His sodium had run actually as low as 120. His blood sugars were recently running in the 400-600, these are much better too since we have adjusted his meds. PAST MEDICAL HISTORY: Significant for known cirrhosis and liver failure, diabetes, COPD, ascites, anasarca requiring frequent paracentesis. He is scheduled for TIPS tomorrow with Dr. Hawkins. ALLERGIES: None known. HOME MEDICATIONS: Lactulose 30 b.i.d., bumetanide 2 b.i.d., Lorazepam p.r.n., metformin 1000 daily, and Glargine 30 units b.i.d. FAMILY HISTORY: Significant for cardiovascular disease. SOCIAL HISTORY: The patient is a former smoker, does not drink. Denies recreational drug use. REVIEW OF SYSTEMS: He states that he was pretty out of it this morning and states he does not remember much of the events. He does state that he is feeling a little bit better now. He still seems a little bit confused. He denies any chest pain. He does complain of some abdominal pain. Some of his fluid has already reaccumulated. PHYSICAL EXAMINATION: GENERAL: Cachectic male in no distress. HEENT: Head is normocephalic. Sclerae are nonicteric. NECK: Soft and supple. HEART: Regular. LUNGS: With diminished breath sounds. ABDOMEN: With some distention, but not taut at this time, has 3+ edema. NEUROLOGIC: Without any gross focal deficits, but does seem a little confused. IMPRESSION: End-stage liver disease, cirrhosis, ascites, edema, diabetes, chronic obstructive pulmonary disease, hepatic encephalopathy. PLAN: Admit, start on lactulose and Xifaxan. We will let interventional radiology now that he is here since he is scheduled for TIPS tomorrow. He was given some Dilaudid p.r.n. See orders for rest of plan. TRANSINT:[id number] Voice Confirmation ID: [id number] DOCUMENT ID: [id number] HISTORY AND PHYSICAL [id number] JEANNIE DODSON MATTHEW DO at 1041 CC: [id number] DICTATION DATE: 03/17/16 1441 INTERNET MARKETER: 03/17/16 1514 ADM IN [address] [id number]
--- NOTE | 2016-03-18 11:57 | NUR ---
POTASSIUM INFUSING VIA PUMP AT 100ML/HR
--- NOTE | 2016-03-18 12:30 | NUR ---
RECIEVED PT TO ROOM FOR RECOVERY. VSS AT THIS TIME. DRESSING TO RIGHT NECK AND RIGHT UPPER ABD C/D/I. NO BLEEDING OR HEMATOMA NOTED TO SITES. WILL CONTINUE TO ASSESS FOR CHANGES. CALL LIGHT IN REACH. BED ALARM ON. ASSESSMENT COMPLETE PER FLOWSHEET.
[2016-03-18 17:30] LABS: ALBUMIN 1.6 g/dL (3.4-5.0); ALKALINE PHOSPHATASE 340 U/L (46-116); ALT (SGPT) 54 U/L (10-68); BILIRUBIN - TOTAL 2.54 mg/dL (0.2-1.3); CARBON DIOXIDE 28.9 mmol/L (21.0-32.0); CHLORIDE - SERUM 102 mmol/L (98-107); PROTEIN - SERUM 4.8 g/dL (6.4-8.2); SODIUM 139 mmol/L (136-145); UREA NITROGEN 14 mg/dL (7-18); eGFR NON AFRICAN AMERICAN 83 mL/min (90-120)
[2016-03-18 17:32] LABS: CALC OSMOLALITY 284 mosm/kg (275-300); GLUCOSE 206 mg/dL (74-106)
[2016-03-18 17:33] LABS: POTASSIUM - SERUM 2.7 mmol/L (3.5-5.1)
--- NOTE | 2016-03-18 19:17 | NUR ---
ASSESSMENT COMPLETE PER FLOW SHEET. VSS. PT AWAKE ALERT ORIENTED X3. DENIES NEEDS AT THIS TIME. REFER TO FLOW SHEET FOR FINDINGS. WILL CONTINUE TO MONITOR.
--- NOTE | 2016-03-18 20:17 | NUR ---
REPOSIITONED UP IN BED ON R SIDE. NO NEW CHANGES AT THIS TIME.
--- NOTE | 2016-03-18 21:18 | NUR ---
PRN DILAUDID ADM FOR 8/10 PAIN RADIATING FROM R SIDE AND ABD COSTANT ACHING. VSS. NO NEW ASSESSMENTS WILL CONTINUE TO MONITOR.
--- NOTE | 2016-03-18 22:12 | NUR ---
REPOSITIONED ON BACK PER REQUEST. VSS NO NEW CHANGES AT THIS TIME. GIVEN DIET SPRITE DENIES FURTHER NEEDS.
--- NOTE | 2016-03-18 23:37 | NUR ---
REASSESSMENT COMPLETE PER FLOW SHEET. VSS. NO NEW CHANGES AT THIS TIME. RESTING COMFORTABLY. WILL CONTINUE TO MONITRO.
[2016-03-19] VITALS (24 sets, daily range): BP systolic 84–101; BP diastolic 49–74
--- NOTE | 2016-03-19 01:12 | NUR ---
PT RESTING COMFORTABLY. VSS NO NEW CHANGES AT THIS TIME. WILL CONTINUE TO MONITOR.
--- NOTE | 2016-03-19 03:06 | NUR ---
REPORT RECIEVED. ASSESSMENT COMPLETE PER FLOW SHEET. VSS. RADIOLOGY AT BEDSIDE. WILL CONTINUE TO MONITOR.
--- NOTE | 2016-03-19 05:16 | NUR ---
GIVEN ORANGE JUICE PER REQEUST. VSS WILL CONTINUE TO MONITOR. DENIES FURTHER NEEDS.
[2016-03-19 05:33] LABS: BASOPHILS 0.3 % (0.0-2.0); EOSINOPHILS 1.1 % (0-7); HEMOGLOBIN 9.7 g/dL (13.5-17.5); IMMATURE GRANULOCYTES 0.3 % (0-5); LYMPHOCYTES 13.3 % (15-50); MCHC 33.4 g/dL (31.0-37.0); MEAN PLATELET VOLUME 10.8 fL (7.4-10.4); MONOCYTES 7.8 % (2-11); NEUTROPHILS 77.2 % (40-80); PLATELET COUNT 63 10x3/uL (130-400); RBC 2.94 10x6/uL (4.20-6.10); RDW 17.8 % (11.5-14.5); WBC 7.4 10x3/uL (4.8-10.8)
[2016-03-19 05:50] LABS: MCV 98.6 fL (80.0-100.0)
[2016-03-19 05:52] LABS: ALBUMIN 1.7 g/dL (3.4-5.0); ALKALINE PHOSPHATASE 320 U/L (46-116); ALT (SGPT) 56 U/L (10-68); BILIRUBIN - TOTAL 1.98 mg/dL (0.2-1.3); CALC OSMOLALITY 281 mosm/kg (275-300); CALCIUM 7.2 mg/dL (8.5-10.1); CARBON DIOXIDE 26.3 mmol/L (21.0-32.0); CHLORIDE - SERUM 103 mmol/L (98-107); CREATININE - SERUM 0.8 mg/dL (0.6-1.3); GLUCOSE 212 mg/dL (74-106); MAGNESIUM - SERUM 1.4 mg/dL (1.8-2.4); PROTEIN - SERUM 4.8 g/dL (6.4-8.2); SODIUM 138 mmol/L (136-145); UREA NITROGEN 13 mg/dL (7-18); eGFR NON AFRICAN AMERICAN > 90 mL/min (90-120)
--- NOTE | 2016-03-19 09:25 | NUR ---
DR. GROVER CALLED TO CHECK PT'S LAB RESULTS. PROVIDED. NO NEW ORDERS.
--- NOTE | 2016-03-19 09:40 | NUR ---
Nutrition follow-up: Diet advanced to low sodium due to continued fluid retention. S/P TIPS procedure Labs reviewed - NH3: 73 PO intake is good at this time. Will provide food choices with selective menus and honor food preferences within diet restrictions. RDN following.
--- NOTE | 2016-03-19 11:15 | NUR ---
Is the patient Alert and Oriented? Yes 0 * How many steps to enter\exit or inside your home? 3/RAIL 0 * PCP DR. GROVER 0 * Pharmacy [facility] IN [place] 0 * Preadmission Environment Home with Family 0 * ADLs Partial Dependent 0 * Partial ADLs (Assistance needed) Medication Management Toileting 0 * Equipment Rolling Walker Shower Chair 0 * List name and contact numbers for known caregivers / representatives who currently or will assist patient after discharge: [id number]: MANUEL [phone] 0 * Community resources currently utilized Home Health 0 * Please name any agencies selected above. PATIENT HAD [facility] BEFORE COMING TO THE HOSPITAL 0 * Additional services required to return to the preadmission environment? No 0 * Can the patient safely return to the preadmission environment? Yes 0 * Has this patient been hospitalized within the prior 30 days at any hospital? Yes PATIENT STATES HE LIVES WITH HIS SON, JEANNIE AND HIS DIL, MANUEL. EITHER OF THEM WILL DRIVE HIM HOME AT DISCHARGE. PATIENT'S PCP IS DR. GROVER. HE GETS HIS MEDS FROM [facility] IN [place]. HE IS CURRENT WITH [facility]. PATIENT HAS A WALKER AND SHOWER CHAIR. PATIENT STATES THERE ARE 3 STEPS WITH A RAIL TO ENTER HIS HOME. NO DISCHARGE NEEDS IDENTIFIED AT THIS TIME. CM TO FOLLOW.
--- NOTE | 2016-03-19 15:46 | NUR ---
Mrs. Han had hemodialysis today via her left upper arm av graft from 1310 until 1515. Average blood flow was 350 mls/minute. Used zero heparin and noted some increasing venous pressures which could be venous outflow stenosis since the pressures were not relieved by flushes. Pt. started becoming hypotensive with the lowest b/p of 69/45 which did not come up with normal saline boluses. I started returning blood at this time while Dr. Cordero was called. Orders received to stop treatment. Zero net fluid achieved. Post vital signs were: B/P: 93/47, HR: 77, Temp: 97.4, Resps: 22.
--- NOTE | 2016-03-19 19:00 | NUR ---
PT AOX4. UNLABORED RESPIRATIONS, CLEAR LUNG SOUNDS. RT UPPER ABD WITH INCISION, CDI. BOWEL SOUNDS ACTIVE. RT NECK WITH INCISION, DSG CDI. GENERALIZED EDEMA TO LOWER EXTREMITIES NOTED. PT REPOSITIONED FOR COMFORT. FRESH WATER TO BEDSIDE. VSS. DENIES FURTHER NEEDS AT THIS TIME. CALL LIGHT AND BEDSIDE TABLE WITHIN PT REACH. CPOC.
--- NOTE | 2016-03-19 21:00 | NUR ---
NO VISITORS AT THIS TIME. VSS. PARTIAL LINEN CHANGE COMPLETE. PT REPOSITIONED FOR COMFORT.
--- NOTE | 2016-03-19 23:00 | NUR ---
REASSESSMENT COMPLETE, SEE FLOWSHEET FOR ALL FINDINGS. NO ACUTE CHANGES AT THIS TIME. PT RESTING QUIETLY WITH VSS. FRESH WATER TO BEDSIDE. PT REPOSITIONED FOR COMFORT. CALL LIGHT AND BEDSIDE TABLE WITHIN PT REACH. CPOC.
[2016-03-20] VITALS (24 sets, daily range): BP systolic 81–115; BP diastolic 52–67
--- NOTE | 2016-03-20 03:00 | NUR ---
REASSESSMENT COMPLETE, SEE FLOWSHEET FOR ALL FINDINGS. PT RESTING QUIETLY WITH VSS. ICE CHIPS TO BEDSIDE PER REQUEST. PT REPOSITOINED FOR COMFORT. VOICES NO FURTHER NEEDS AT THIS TIME. CALL LIGHT AND BEDSIDE TABLE WITHIN PT REACH. CPOC.
[2016-03-20 06:00] LABS: BASOPHILS 0.1 % (0.0-2.0); EOSINOPHILS 1.1 % (0-7); HEMATOCRIT 30.6 % (42.0-54.0); HEMOGLOBIN 10.5 g/dL (13.5-17.5); IMMATURE GRANULOCYTES 0.2 % (0-5); MCHC 34.3 g/dL (31.0-37.0); MCV 96.2 fL (80.0-100.0); MEAN PLATELET VOLUME 10.2 fL (7.4-10.4); NEUTROPHILS 75.6 % (40-80); PLATELET COUNT 59 10x3/uL (130-400); RBC 3.18 10x6/uL (4.20-6.10); RDW 17.7 % (11.5-14.5); WBC 8.2 10x3/uL (4.8-10.8)
[2016-03-20 06:06] LABS: HEMOGLOBIN A1C 8.3 % (4.8-6.0)
[2016-03-20 06:24] LABS: ALBUMIN 1.6 g/dL (3.4-5.0); ALKALINE PHOSPHATASE 335 U/L (46-116); ALT (SGPT) 58 U/L (10-68); AMYLASE - SERUM 40 U/L (25-115); CALC OSMOLALITY 269 mosm/kg (275-300); CARBON DIOXIDE 27.5 mmol/L (21.0-32.0); CHLORIDE - SERUM 99 mmol/L (98-107); CREATININE - SERUM 0.8 mg/dL (0.6-1.3); GLUCOSE 212 mg/dL (74-106); LIPASE 171 U/L (73-393); MAGNESIUM - SERUM 1.6 mg/dL (1.8-2.4); SODIUM 131 mmol/L (136-145); UREA NITROGEN 16 mg/dL (7-18); eGFR NON AFRICAN AMERICAN > 90 mL/min (90-120)
[2016-03-20 06:25] LABS: CALCIUM 6.8 mg/dL (8.5-10.1); POTASSIUM - SERUM 3.6 mmol/L (3.5-5.1)
--- NOTE | 2016-03-20 07:00 | NUR ---
REC'D CARE OF PT. A&O X3.
--- NOTE | 2016-03-20 08:04 | NUR ---
INITIAL ASSESSMENT COMPLETED PER FLOW SHEET.
--- NOTE | 2016-03-20 09:28 | NUR ---
AMBULATED 100 FEET AND BACK TO BEDSIDE COMMODE WITH PT
--- NOTE | 2016-03-20 09:47 | NUR ---
FROM BEDSIDE COMMODE TO CHAIR. HAD LARGE SEMIFORMED STOOL. PERICARE PROVIDED.CPOC.
--- NOTE | 2016-03-20 10:54 | NUR ---
REASSESSMENT COMPLETED PER FLOW SHEET. NO ACUTE CHANGES.
--- NOTE | 2016-03-20 12:30 | NUR ---
BACK TO BED FROM CHAIR.
--- NOTE | 2016-03-20 15:03 | NUR ---
REASSESSMENT COMPLETED PER FLOW SHEET. NO ACUTE CHANGES.
--- NOTE | 2016-03-20 16:13 | NUR ---
RESTING WITH EYES CLOSED. RESPONDS APPROPRIATELY TO VERBAL STIMULI. ON RA SATTING 97%. RR 20 EVEN AND UNLABORED. CPOC.
--- NOTE | 2016-03-20 19:00 | NUR ---
PT AOX4, VSS. REPOSITIONED FOR COMFORT. LUNG SOUNDS CLEAR. BOWEL SOUNDS ACTIVE IN ALL QUADRANTS, ABD DISTENDED. PITTING EDEMA TO LOWER EXTREMITIES. PERIPHERAL PULSES PRESENT. VOICES NO NEEDS AT THIS TIME. CPOC.
--- NOTE | 2016-03-20 21:00 | NUR ---
NO VISITORS AT THIS TIME. VSS. DENIES NEEDS. CPOC.
--- NOTE | 2016-03-20 23:00 | NUR ---
REASSESSMENT COMPLETED PER FLOWSHEET, NO ACUTE CHANGES.
[2016-03-21] VITALS (24 sets, daily range): BP systolic 84–114; BP diastolic 47–71
--- NOTE | 2016-03-21 03:00 | NUR ---
REASSESSMENT COMPLETED PER FLOWSHEET, NO ACUTE CHANGES. PT REPOSITIONED FOR COMFORT. CPOC.
[2016-03-21 05:37] LABS: BASOPHILS 0.5 % (0.0-2.0); EOSINOPHILS 1.9 % (0-7); HEMATOCRIT 29.2 % (42.0-54.0); HEMOGLOBIN 9.9 g/dL (13.5-17.5); IMMATURE GRANULOCYTES 0.3 % (0-5); LYMPHOCYTES 17.2 % (15-50); MCH 32.7 pg (26.0-34.0); MCHC 33.9 g/dL (31.0-37.0); MCV 96.4 fL (80.0-100.0); MONOCYTES 11.7 % (2-11); NEUTROPHILS 68.4 % (40-80); RBC 3.03 10x6/uL (4.20-6.10); RDW 17.8 % (11.5-14.5); WBC 6.3 10x3/uL (4.8-10.8)
[2016-03-21 05:40] LABS: PLATELET COUNT 47 10x3/uL (130-400)
[2016-03-21 05:58] LABS: ALBUMIN 1.6 g/dL (3.4-5.0); ALKALINE PHOSPHATASE 322 U/L (46-116); ALT (SGPT) 45 U/L (10-68); BILIRUBIN - TOTAL 2.33 mg/dL (0.2-1.3); CALCIUM 7.3 mg/dL (8.5-10.1); CARBON DIOXIDE 28.5 mmol/L (21.0-32.0); CHLORIDE - SERUM 103 mmol/L (98-107); CREATININE - SERUM 0.7 mg/dL (0.6-1.3); POTASSIUM - SERUM 3.3 mmol/L (3.5-5.1); PRO BNP 414 pg/mL (0-125); PROTEIN - SERUM 4.9 g/dL (6.4-8.2); SODIUM 135 mmol/L (136-145); eGFR NON AFRICAN AMERICAN > 90 mL/min (90-120)
[2016-03-21 05:59] LABS: CALC OSMOLALITY 273 mosm/kg (275-300); GLUCOSE 112 mg/dL (74-106); UREA NITROGEN 21 mg/dL (7-18)
--- NOTE | 2016-03-21 07:00 | NUR ---
REC'D CARE OF PT. A&O X3.
--- NOTE | 2016-03-21 07:45 | NUR ---
UP TO BEDSIDE COMMODE.
--- NOTE | 2016-03-21 10:58 | NUR ---
REASSESSMENT COMPLETED PER FLOW SHEET. NO ACUTE CHANGES.
--- NOTE | 2016-03-21 12:27 | NUR ---
HAD LARGE BROWN SEMIFORMED STOOL. INDEPENDENT CARE.
--- NOTE | 2016-03-21 13:30 | NUR ---
AMBULATED 175 FEET AND BACK TO CHAIR.
--- NOTE | 2016-03-21 14:51 | NUR ---
HAD LARGE SEMIFORMED BROWN STOOL AND 300 CC URINE AND BACK TO CHAIR.
--- NOTE | 2016-03-21 15:01 | NUR ---
COMPLETE LINEN CHANGE
--- NOTE | 2016-03-21 16:00 | NUR ---
RESTING WITH EYES CLOSED. RESPONSE APPROPRIATLY. DENIES NEEDS. SATTING 98% ON RA. CLWR.CPOC.
[2016-03-22] VITALS (23 sets, daily range): BP systolic 83–111; BP diastolic 41–77
[2016-03-22 05:30] LABS: BASOPHILS 0.3 % (0.0-2.0); EOSINOPHILS 2.7 % (0-7); HEMATOCRIT 30.2 % (42.0-54.0); HEMOGLOBIN 10.4 g/dL (13.5-17.5); IMMATURE GRANULOCYTES 0.5 % (0-5); LYMPHOCYTES 18.3 % (15-50); MCH 33.4 pg (26.0-34.0); MCHC 34.4 g/dL (31.0-37.0); MCV 97.1 fL (80.0-100.0); MEAN PLATELET VOLUME 10.4 fL (7.4-10.4); MONOCYTES 9.2 % (2-11); PLATELET COUNT 50 10x3/uL (130-400); RBC 3.11 10x6/uL (4.20-6.10); RDW 18.3 % (11.5-14.5); WBC 5.8 10x3/uL (4.8-10.8)
[2016-03-22 05:49] LABS: ALBUMIN 1.5 g/dL (3.4-5.0); ALKALINE PHOSPHATASE 348 U/L (46-116); ALT (SGPT) 45 U/L (10-68); CALC OSMOLALITY 271 mosm/kg (275-300); CALCIUM 7.1 mg/dL (8.5-10.1); CARBON DIOXIDE 28.5 mmol/L (21.0-32.0); CHLORIDE - SERUM 100 mmol/L (98-107); CREATININE - SERUM 0.8 mg/dL (0.6-1.3); POTASSIUM - SERUM 3.3 mmol/L (3.5-5.1); SODIUM 132 mmol/L (136-145); UREA NITROGEN 21 mg/dL (7-18); eGFR NON AFRICAN AMERICAN > 90 mL/min (90-120)
[2016-03-22 05:50] LABS: GLUCOSE 168 mg/dL (74-106)
--- NOTE | 2016-03-22 09:17 | NUR ---
Nutrition follow-up: Diet: low sodium PO intake 75-100% of meals Labs reviewed +BM-multiple Wt: 192# RDN following.
--- NOTE | 2016-03-22 10:36 | NUR ---
0800 AM ASSESMENT IS COMPLETE SEE FLOW SHEET FOR FINDINGS.. PT IS AWAKE AND BREAKFASTY SERVED.. FEEDING SELF.. 0900 WIHTOUT VISITORS AT THIS TIME AMBULATED IN UNIT WITH PHYSICAL THERAPY AND SITTING INN SHAIR AT THE BEDSIDE.. 1030 TO BSC.. LIQUID STOOL.. 1038 BATH WITH COMLETE LINEN CHANGE DONE
--- NOTE | 2016-03-22 13:57 | NUR ---
1200 LUNCH SERVED.. CONTINUES OOB IN CHAIR.. FSBS DONE.. INSULIN COVER.. 1205 FAMILY N TO SEE PT. UPDATE IS GIVEN.. 1330 PT PUT SELF BACK TO BED.. WTHOU C/O AT THIS TIME..
--- NOTE | 2016-03-22 15:58 | NUR ---
1500 WITHOUT VISTORS AT THIS TIME.. PT S SLEEPING ..
--- NOTE | 2016-03-22 18:16 | NUR ---
1630 DIET SERVED TO PT.. PT SLEEPING AT THS TIME 1700 MEDS GIVEN.. 1800 WIHTOUT VISITORS..
[2016-03-23] VITALS (12 sets, daily range): BP systolic 89–101; BP diastolic 52–68
[2016-03-23 05:13] LABS: BASOPHILS 0.4 % (0.0-2.0); EOSINOPHILS 2.8 % (0-7); HEMATOCRIT 32.3 % (42.0-54.0); IMMATURE GRANULOCYTES 0.7 % (0-5); LYMPHOCYTES 16.9 % (15-50); MCH 33.1 pg (26.0-34.0); MCHC 34.1 g/dL (31.0-37.0); MCV 97.3 fL (80.0-100.0); MEAN PLATELET VOLUME 10.4 fL (7.4-10.4); MONOCYTES 12.2 % (2-11); PLATELET COUNT 58 10x3/uL (130-400); RBC 3.32 10x6/uL (4.20-6.10); RDW 18.4 % (11.5-14.5); WBC 5.4 10x3/uL (4.8-10.8)
[2016-03-23 05:27] LABS: INR 1.47 (0.85-1.17); PROTIME 17.8 SECONDS (11.6-15.0)
[2016-03-23 05:28] LABS: D-DIMER-QUANTITATIVE 3.37 ug/mLFEU (0.20-0.54)
[2016-03-23 05:39] LABS: ALBUMIN 1.6 g/dL (3.4-5.0); ALKALINE PHOSPHATASE 369 U/L (46-116); ALT (SGPT) 45 U/L (10-68); AMYLASE - SERUM 37 U/L (25-115); BILIRUBIN - TOTAL 2.68 mg/dL (0.2-1.3); CALC OSMOLALITY 279 mosm/kg (275-300); CALCIUM 7.5 mg/dL (8.5-10.1); CARBON DIOXIDE 27.1 mmol/L (21.0-32.0); CHLORIDE - SERUM 104 mmol/L (98-107); CREATININE - SERUM 0.8 mg/dL (0.6-1.3); GLUCOSE 214 mg/dL (74-106); LDH 240 U/L (85-227); LIPASE 180 U/L (73-393); MAGNESIUM - SERUM 1.6 mg/dL (1.8-2.4); PHOSPHOROUS 2.2 mg/dL (2.5-4.9); POTASSIUM - SERUM 3.4 mmol/L (3.5-5.1); PROTEIN - SERUM 5.4 g/dL (6.4-8.2); SODIUM 136 mmol/L (136-145); UREA NITROGEN 19 mg/dL (7-18); eGFR NON AFRICAN AMERICAN > 90 mL/min (90-120)
[2016-03-23 05:54] LABS: C-REACTIVE PROTEIN 5.4 mg/dL (0.0-0.9)
--- NOTE | 2016-03-23 11:03 | NUR ---
0800 AM ASSESMENT IS COMPLETE SEE FLOW SHEET FOR FINDINGS.. PT IS NPO FOR MRI AND ULTRA SOUND ORDERED BY DR RENNER.. MEDS HELD AT THIS TME.. 0850 TRANSPORTED TO MRI VIA WHEELCHAIR.. 0945 BACK IN ROOM FROM MRI.. 1000 DR JUSTIN IN TO SEE PT.. BASIL STEVENSON FOR RADIOLOGY IN TO SEE PT.. OK FOR TRANSFER TO FLOOR... 1030 CONTINUES NPO WAITING FOR ULTRASOUND...
--- NOTE | 2016-03-23 13:23 | NUR ---
1130 ULTRASOUND DONE AT THE BEDSIDE.. 1200 LUNCH SERVED FEEDING SELF.. MEDS GIVEN ...VISITORS AT THE BEDSIDE..
--- NOTE | 2016-03-23 15:47 | NUR ---
1500 OOB TO BSC.. SMALL SEMI FORMED SPIVEY STOOL...
--- NOTE | 2016-03-23 15:48 | NUR ---
1515 ASSISTED BACK TO BED.. PT STATES THAT HIS RIBS ARE SORE AND TENDER TO TOUCH..
--- NOTE | 2016-03-23 17:55 | NUR ---
1630 FSBS INSULIN COVER.. 1645 DINNER SERVED AND PT IS FEEDING SELF.. 1715 PT IS WTH EYES CLOSED .. I AND O DONE
--- NOTE | 2016-03-23 19:14 | NUR ---
REPORT REICEVED. ASSESSMENT COMPLETE PER FLOW SHEET. REFER FOR COMPLETE FINDINGS. VSS. PT GIVEN WATER AND ICE CHIPS PER REQUEST. DENIES FURTHER NEEDS. VSS WILL CONTINUE TO MONITOR.
--- NOTE | 2016-03-23 21:17 | NUR ---
NO VISITORS AT THIS TIME. PT GIVEN PRN DILAUDID PER REQUEST. VSS WILL CONTNIUE TO MONITOR.
--- NOTE | 2016-03-23 23:28 | NUR ---
OOB TO BEDSIDE 200 CC KEVIN URINE NOTED. NO NEW CHANGES AT THIS TIME WILL CONTINUE TO MONITOR.
--- NOTE | 2016-03-24 01:12 | NUR ---
UP TO BEDSIDE COMMODE LARGE BM NOTED. WILL CONTINUE TO MONTIOR NO NEW CHANGES.
--- NOTE | 2016-03-24 03:24 | NUR ---
RADIOLOGY AT BEDSIDE. NO NEW FINDNIGS AT THIS TIME. WILL CONTINUE TO MONITOR.
[2016-03-24 04:00] VITALS: BP 101/61
--- NOTE | 2016-03-24 04:30 | NUR ---
PT ARRIVED TO UNIT FROM ICU BY WHEELCHIAR PT ABLE TO AMBULATE WITH NO ASSITANCE TO BEDSIDE CAMMODE. ABD IS DISTENTED AND FIRM PT DENIES NEEDS AT THIS TIME RESPERATIONS ARE EVEN AND NO LABORED ON ROOM AIR IV TO L FOREARM SALINE LOCKED FLUSHED WITH 10CC NORMAL SALINE NO INFILTRATION OBSERVED PT AMBULATORY WITH NO ASSITANCE NEEDED WILL MONITOR
[2016-03-24 05:00] LABS: BASOPHILS 0.1 % (0.0-2.0); EOSINOPHILS 2.8 % (0-7); HEMATOCRIT 33.4 % (42.0-54.0); HEMOGLOBIN 11.2 g/dL (13.5-17.5); IMMATURE GRANULOCYTES 0.6 % (0-5); LYMPHOCYTES 17.8 % (15-50); MCH 32.8 pg (26.0-34.0); MCHC 33.5 g/dL (31.0-37.0); MCV 97.9 fL (80.0-100.0); MEAN PLATELET VOLUME 9.9 fL (7.4-10.4); MONOCYTES 12.8 % (2-11); NEUTROPHILS 65.9 % (40-80); PLATELET COUNT 66 10x3/uL (130-400); RBC 3.41 10x6/uL (4.20-6.10); RDW 18.4 % (11.5-14.5); WBC 6.7 10x3/uL (4.8-10.8)
[2016-03-24 05:07] LABS: INR 1.47 (0.85-1.17); PROTIME 17.8 SECONDS (11.6-15.0)
[2016-03-24 05:25] LABS: ALBUMIN 1.6 g/dL (3.4-5.0); ALKALINE PHOSPHATASE 387 U/L (46-116); ALT (SGPT) 47 U/L (10-68); BILIRUBIN - TOTAL 2.48 mg/dL (0.2-1.3); CALC OSMOLALITY 272 mosm/kg (275-300); CALCIUM 7.7 mg/dL (8.5-10.1); CARBON DIOXIDE 26.3 mmol/L (21.0-32.0); CHLORIDE - SERUM 104 mmol/L (98-107); CREATININE - SERUM 0.8 mg/dL (0.6-1.3); MAGNESIUM - SERUM 1.6 mg/dL (1.8-2.4); PHOSPHOROUS 2.6 mg/dL (2.5-4.9); POTASSIUM - SERUM 3.7 mmol/L (3.5-5.1); PRO BNP 298 pg/mL (0-125); PROTEIN - SERUM 5.7 g/dL (6.4-8.2); SODIUM 136 mmol/L (136-145); UREA NITROGEN 17 mg/dL (7-18); eGFR NON AFRICAN AMERICAN > 90 mL/min (90-120)
[2016-03-24 05:31] LABS: GLUCOSE 73 mg/dL (74-106)
[2016-03-24 08:02] VITALS: BP 107/64
[2016-03-24 11:42] VITALS: BP 100/52
--- NOTE | 2016-03-24 11:50 | CN ---
PATIENT NAME:ZECHARIAH DODSON MEDICAL RECORD: [id number] : 62 LOCATION:. D.2132 ADMIT DATE: 03/18/16 ACCOUNT: [id number] CONSULTING PHYSICIAN: HECTOR RENNER MD REFERRING PHYSICIAN: ZAK GROVER DO DATE OF CONSULTATION: 03/22/2016 Gastrointestinal consultation REFERRING PHYSICIAN: Zechariah Pak MD HISTORY OF PRESENT ILLNESS: The patient is a 55-year-old white male with a known history of cirrhosis, basically admitted with refractory ascites. I saw this man a couple of months ago in the hospital and he underwent an extensive liver workup. Before then, he had come from [facility] where he had a workup there including a liver biopsy. The biopsy revealed established cirrhosis of unclear etiology, though possibly due to primary sclerosing cholangiopathy. However, the patient is a very poor historian and cannot tell me anything more other about any treatment or what his plans were. I therefore did an extensive laboratory workup including checking for viral hepatitis, autoimmune hepatitis with EDUARDO, ASMA, and anti-LKM, and antimitochondrial antibody, alpha fetoprotein as well as iron studies, all of which were negative including hemochromatosis gene. Since then, he has had refractory ascites status post several parastasis and ultimately required TIPS placement done about 8 days ago. He is subsequently readmitted with recurrent ascites, despite his TIPS. PAST MEDICAL HISTORY: Remarkable for the above. He also has diabetes and COPD. ALLERGIES: No known drug allergies. HOME MEDICATIONS: Include Bumex, Ativan and lactulose as well as metformin and insulin. FAMILY HISTORY: Negative for GI disease. SOCIAL HISTORY: The patient is a nondrinker. He is a former smoker. REVIEW OF SYSTEMS: Noncontributory. PHYSICAL EXAMINATION: GENERAL: Reveals a middle-aged white male in no acute distress. He is alert and oriented times 4. OBJECTIVE: VITAL SIGNS: Stable and afebrile. CHEST: Clear. HEART: Regular rate and rhythm. ABDOMEN: Soft and protuberant due to [id number] ascites. EXTREMITIES: No edema. LABORATORY DATA: Reveals a white count of 5000, hematocrit 30, MCV of 97, platelet count 50,000. Sodium 132, potassium 3.3. BUN 21, creatinine 0.8, total bilirubin is 2.1, AST 52, ALT 45, alkaline phosphatase 348. Ammonia level 128, albumin 1.5, INR 1.4. Alcohol level 0. Drug screen is negative. CONSULT REPORT [id number] ZECHARIAH DODSON IMPRESSION: 1. Refractory ascites, now status post TIPS placement about March 13. 2. Minimal hepatic encephalopathy. He is currently stable in that regard on lactulose and is very alert. 3. Cirrhosis of unclear etiology with a negative workup here recently as noted above. Again, his liver biopsy at [facility] revealed possible primary biliary cirrhosis or autoimmune cholangiopathy. This might actually be a cryptogenic cirrhosis. RECOMMENDATION: 1. IgG4 level. 2. MRCP to look for PSC. 3. Increase diuretics until his TIPS "kicks in." He was only on Bumex. I would recommend Bumex 1 mg twice daily and Aldactone 100 mg b.i.d. for now. I would adjust this depending on his daily weights and renal function. 4. Check Doppler ultrasound of his TIPS to ensure patency. 5. Stop normal saline. 6. Okay to move to the floor. 7. Do not william ammonia levels. TRANSINT:[id number] Voice Confirmation ID: [id number] DOCUMENT ID: [id number] HECTOR RENNER MD at 1150 CC: ZECHARIAH PAK MD [id number] DICTATION DATE: 03/22/162048 ACCOUNTING BOOKKEEPER: 03/22/16 2244 ADM IN [facility] [address] [place] [address]
[2016-03-24 16:00] VITALS: BP 96/52
--- NOTE | 2016-03-24 17:23 | NUR ---
PT WEIGHED PERSONALLY BY ME ON STAND-UP SCALE FOR MOST ACCURATE WEIGHT. CURRENT WT:173.2# WILL NOTE OFF IN SHIFT CHANGE TO WEIGH PT CORRECTLY ON STANDING SCALE DAILY.
--- NOTE | 2016-03-24 19:41 | NUR ---
RESUMED CARE OF PT, LYING IN BED RESPIRAITONS EVEN AND UNLABORED ON ROOM AIR. LEFT FOREARM SALINE LOCKED. TALKING ON PHONE AT THIS TIME, NO NEEDS NOTED. WILL CONTINUE TO MONITOR. SEE NURSE ASSESSMENT.
[2016-03-24 20:00] VITALS: BP 92/50
[2016-03-25] VITALS: BP 91/59
[2016-03-25 04:00] VITALS: BP 93/59
--- NOTE | 2016-03-25 04:10 | NUR ---
SEA SHELL GATHERER AT BEDSIDE TO OBTAIN VITALS, CALL LIGHT IN REACH. WILL CONTINUE WITH PLAN OF CARE.
[2016-03-25 06:08] LABS: BASOPHILS 0.4 % (0.0-2.0); EOSINOPHILS 2.9 % (0-7); HEMATOCRIT 30.3 % (42.0-54.0); HEMOGLOBIN 10.3 g/dL (13.5-17.5); IMMATURE GRANULOCYTES 0.8 % (0-5); LYMPHOCYTES 15.9 % (15-50); MCH 33.1 pg (26.0-34.0); MCV 97.4 fL (80.0-100.0); MEAN PLATELET VOLUME 9.9 fL (7.4-10.4); MONOCYTES 11.7 % (2-11); NEUTROPHILS 68.3 % (40-80); PLATELET COUNT 56 10x3/uL (130-400); RBC 3.11 10x6/uL (4.20-6.10); RDW 18.6 % (11.5-14.5); WBC 5.2 10x3/uL (4.8-10.8)
[2016-03-25 06:20] LABS: INR 1.53 (0.85-1.17); PROTIME 18.3 SECONDS (11.6-15.0)
[2016-03-25 06:28] LABS: ALBUMIN 1.6 g/dL (3.4-5.0); ALKALINE PHOSPHATASE 389 U/L (46-116); ALT (SGPT) 48 U/L (10-68); BILIRUBIN - TOTAL 2.42 mg/dL (0.2-1.3); CALC OSMOLALITY 273 mosm/kg (275-300); CALCIUM 7.3 mg/dL (8.5-10.1); CARBON DIOXIDE 24.2 mmol/L (21.0-32.0); CHLORIDE - SERUM 105 mmol/L (98-107); CREATININE - SERUM 0.8 mg/dL (0.6-1.3); GLUCOSE 89 mg/dL (74-106); POTASSIUM - SERUM 3.7 mmol/L (3.5-5.1); PROTEIN - SERUM 5.3 g/dL (6.4-8.2); SODIUM 137 mmol/L (136-145); UREA NITROGEN 14 mg/dL (7-18); eGFR NON AFRICAN AMERICAN > 90 mL/min (90-120)
--- NOTE | 2016-03-25 07:11 | NUR ---
PT SITTING UP IN BED WATCHING TV DENEIS NEEDS WILL CONTINUE TO MONITOR.
[2016-03-25 07:25] LABS: MAGNESIUM - SERUM 1.6 mg/dL (1.8-2.4); PHOSPHOROUS 3.2 mg/dL (2.5-4.9)
[2016-03-25 07:34] LABS: PLATELET ESTIMATE DECREASED
[2016-03-25 08:02] VITALS: BP 101/58
[2016-03-25 12:14] VITALS: BP 112/55
--- NOTE | 2016-03-25 12:46 | NUR ---
Nutrition follow-up: Diet: low sodium PO intake ~60% average of meals Labs reviewed; NH3: 70 Wt: 179# PO intake fair to good at most meals RDN following.
--- NOTE | 2016-03-25 12:52 | NUR ---
Patient Name: JEANNIE DODSON Encounter No: [id number] : 1960 Primary Insurance: MEDICARE A & B Anticipated DC Date: 03-25-2016 Planned Disposition: Home WITH HOME HEALTH External Planned Provider: [facility] DCP follow-up note: CM RECEIVED ORDER TO ENSURE PT HAS NEBULIZER FOR DISCHARGE HOME, MET WITH PT AND NEPHEW IN ROOM. PT REPORTS HAVING SHOWER CHAIR, WALKER AND NEBULIZER AT HOME. PT HAS NO PREFERENCE ON PROVIDER FOR MEDICAL EQUIPMENT AND DENIES NEED OF FURTHER MEDICAL EQUIPMENT OR REHAB SERVICES. PT REPORTS PLAN TO RETURN HOME AT DISCHARGE, FAMILY TO TRANSPORT AND PT WOULD LIKE HOME HEALTH WITH [facility] RESUMED. IMPORTANT MESSAGE FROM MEDICARE PROVIDED AND EXPLAINED. CM CALLED [facility], , SPOKE TO ALICE WHO WILL RESUME PT'S HOME HEALTH AT DISCHARGE. FOR DISCHARGE, NOTIFY [facility] AT [phone], FAX DISCHARGE INFORMATION TO [facility] AT [phone]. Rene Le, CASE MANAGEMENT
[2016-03-25] MEDS ORDERED: LEVAQUIN500 MG PO (13:32)
[2016-03-25] MEDS ORDERED: LASIX40 MG PO (13:33)
[2016-03-25] MEDS ORDERED: ALDACTONE100 MG PO (13:33)
[2016-03-25] MEDS ORDERED: CHRONULAC30 ML PO (13:34)
[2016-03-25] MEDS ORDERED: FLORAJEN3 CAPS460 MG PO (13:34)
[2016-03-25] MEDS ORDERED: PROTONIX40 MG PO (13:34)
--- NOTE | 2016-03-25 16:01 | NUR ---
Patient Name: JEANNIE DODSON Encounter No: [id number] : 1960 Primary Insurance: MEDICARE A & B Anticipated DC Date: 03-25-2016 Planned Disposition: Home with Home Health External Planned Provider: [facility] DCP follow-up note: CM CALLED [facility], , SPOKE TO ALICE AND NOTIFIED OF PT'S DISCHARGE FOR RESUMPTION OF HOME HEALTH CARE. CM FAXED DISCHARGE INFORMATION TO [facility] AT [phone]. Rene Le, CASE MANAGEMENT
--- NOTE | 2016-03-25 16:07 | NUR ---
WENT OVER DC PAPERWORK PT VERBALIZES UNDERSTANDING. DC PIV WITH CATHETER TIP INTACT. PT WAITING ON RIDE. WILLC ONTINUE TO MONITOR.
[2016-03-25 16:23] VITALS: BP 107/54
--- NOTE | 2016-03-25 16:35 | NUR ---
PT WHEELED OUT
[2016-03-25 17:12] LABS: IGG SUBCLASS 1 661 mg/dL (422-1292); IGG SUBCLASS 2 497 mg/dL (117-747); IGG SUBCLASS 3 174 mg/dL (41-129); IGG SUBCLASS 4 24 mg/dL (1-291)
--- NOTE | 2016-03-29 11:10 | NUR ---
LATE ENTRY: ASHU SPOKE WITH [facility] TODAY AND THEY STATED THEY DID NOT ADMIT PATIENT BECAUSE HE SAID HE WAS GOING OUTSIDE TO RIDE HIS 4-TAYLOR. [facility] NOTIFIED HIS DOCTOR.
--- NOTE | 2016-03-31 09:13 | CN ---
PATIENT NAME:ZECHARIAH DODSON MEDICAL RECORD: [id number] : [birth year] LOCATION:. D.2132 ADMIT DATE: 03/18/16 ACCOUNT: [id number] CONSULTING PHYSICIAN: DIMA CONROY MD REFERRING PHYSICIAN: ZAK GROVER DO DATE OF CONSULTATION: 03/19/2016 Pulmonary Consultation CONSULT REQUESTING PHYSICIAN: Zechariah Pak MD REASON FOR CONSULTATION: Possible fluid overload, pulmonary edema, and COPD. HISTORY OF PRESENT ILLNESS: Mr. Dodson is a 55-year-old gentleman who was admitted with acute mental status changes as well as generalized anasarca and ascites. He underwent paracentesis, nearly 2.4 liters was taken out. He also underwent TIPS procedure. Yesterday, he was a bit hypotensive and briefly required Levophed and the patient was admitted to the ICU. This morning, chest x-ray showing a little bit more congestion and fluid overload. REVIEW OF SYSTEMS: GENERAL: Now, the patient is more awake and alert. He is very weak and lethargic. RESPIRATORY: No cough, no sputum production. CARDIOVASCULAR: No chest pain. He does have some palpitation. GASTROINTESTINAL: As in history of present illness. Other review of the systems is negative. PAST MEDICAL HISTORY: 1. COPD. 2. History of pneumonia in the past. 3. Diabetes mellitus. 4. Cirrhosis of the liver. PAST SURGICAL HISTORY: He has had multiple paracenteses and unsuccessful attempts in the past. ALLERGIES: There are no known drug allergies. PRESENT MEDICATIONS: He is on lactulose. He is on Xifaxan. His on albuterol/ipratropium nebulizer. All other medication is reviewed. PERSONAL AND SOCIAL HISTORY: The patient is an ex-smoker. He is a nondrinker. FAMILY HISTORY: Significant for cardiovascular disease. PHYSICAL EXAMINATION: GENERAL: Now, the patient is sitting in bed. He is not in acute distress. VITAL SIGNS: The blood pressure is 99/74, pulse is 119, respirations 15, temperature 98, and SPO2 is 97% on room air. HEENT: Conjunctivae pink. Sclerae nonicteric. NECK: Supple. No JVD. CHEST: There are bibasilar crackles. No wheezing. HEART: Rate and rhythm is regular. Normal heart sound. A grade II/ systolic murmur. CONSULT REPORT [id number] ZECHARIAH DODSON ABDOMEN: Distended. There is ascites. RECTAL: Deferred. EXTREMITIES: There is 3+ pedal edema. IMPRESSION: 1. Pulmonary edema secondary to fluid overload. 2. Generalized anasarca. 3. Cirrhosis of the liver. 4. Hyperammonemia. 5. Ascites. 6. Chronic obstructive pulmonary disease without exacerbation. 7. Portal hypertension. RECOMMENDATION: 1. Continue Bumex. Continue albuterol/ipratropium nebulizer. Continue lactulose, continue the Xifaxan and we will follow labs and chest x-ray in the morning. Dr. Pak, once again, thank you for involving me in the care of Mr. Dodson. TRANSINT:[id number] Voice Confirmation ID: [id number] DOCUMENT ID: [id number] DIMA CONROY MD at 0913 CC: [id number] DICTATION DATE: 03/19/16 140 MANUFACTURING RECRUITER: 03/19/16 1500 DIS IN 03/25/16 [id number] [place] [address]
== END 2016-03-25 16:35 | disposition home or self-care (01) | DRG 405 ==
LOC: D.ER 06:06 → D.MS 09:33 → OBSVTIME 09:33 → D.MS 09:33 → D.M2 03-18 11:20 → D.ICU 03-18 11:20 → D.M2 03-24 04:07
PROVIDERS: Emergency Medicine; Family Medicine; Internal Medicine Gastroenterology; Specialist; ADMIT Family Medicine
PROC: 06183DY (ICD-10-PCS; principal; 2016-03-18 12:00)
DX: K72.90 Hepatic failure, unspecified without coma (principal); G93.41 Metabolic encephalopathy; J44.1 Chronic obstructive pulmonary disease with (acute) exacerbation; J81.1 Chronic pulmonary edema; E11.9 Type 2 diabetes mellitus without complications; D69.6 Thrombocytopenia, unspecified; E87.6 Hypokalemia

== ENCOUNTER 2016-04-15 08:01 | Inpatient (IN) | payer MEDICARE ==
[~2016-04-15] VITALS: Ht 182.9 cm; Wt 69.6 kg
[~2016-04-15 08:01] MED LIST changes: +FLORAJEN3 CAPS460 MG PO; +LASIX40 MG PO; +LEVAQUIN500 MG PO; +PROTONIX40 MG PO
[2016-04-15 09:33] LABS: BASOPHILS 0.2 % (0.0-2.0); EOSINOPHILS 0.2 % (0-7); HEMATOCRIT 36.1 % (42.0-54.0); HEMOGLOBIN 12.4 g/dL (13.5-17.5); IMMATURE GRANULOCYTES 0.4 % (0-5); LYMPHOCYTES 15.7 % (15-50); MCHC 34.3 g/dL (31.0-37.0); MEAN PLATELET VOLUME 9.5 fL (7.4-10.4); MONOCYTES 12.8 % (2-11); NEUTROPHILS 70.7 % (40-80); RBC 3.76 10x6/uL (4.20-6.10); RDW 16.2 % (11.5-14.5); WBC 4.9 10x3/uL (4.8-10.8)
[2016-04-15 09:39] LABS: PLATELET COUNT 37 10x3/uL (130-400)
[2016-04-15 09:52] LABS: ALBUMIN 1.9 g/dL (3.4-5.0); ALKALINE PHOSPHATASE 338 U/L (46-116); ALT (SGPT) 30 U/L (10-68); CALC OSMOLALITY 272 mosm/kg (275-300); CALCIUM 7.8 mg/dL (8.5-10.1); CARBON DIOXIDE 23.4 mmol/L (21.0-32.0); CHLORIDE - SERUM 103 mmol/L (98-107); GLUCOSE 134 mg/dL (74-106); PROTEIN - SERUM 6.4 g/dL (6.4-8.2); SODIUM 135 mmol/L (136-145); UREA NITROGEN 16 mg/dL (7-18); eGFR NON AFRICAN AMERICAN 83 mL/min (90-120)
[2016-04-15 13:13] VITALS: BP 97/55; BMI 21.6
--- NOTE | 2016-04-15 13:17 | NUR ---
PT IS ALERT. ASSESSMENT DONE PER ADDMISSION PROTOCOL NO OTHER NEEDS. WILL CONTINUE TO MO NITOR.
[2016-04-15 16:42] VITALS: BP 104/55
--- NOTE | 2016-04-15 22:47 | NUR ---
PT ASSESSMENT COMPLETED NO DISTRESS OBSERVED CALL LIGHT IN REACH SRX2 BED LOW AND LOCKED RESPERATIONS EVEN AND UNLABORED ON 2LNC IVP INFUSING ORDERED BED LOW AND LOCKED WILL MONITOR
[2016-04-16] VITALS (7 sets, daily range): BP systolic 107–148; BP diastolic 54–671; Ht 182.9 cm; Wt 69.6 kg
[2016-04-16 06:08] LABS: APTT 42.7 SECONDS (22.8-39.4); INR 1.59 (0.85-1.17); PROTIME 18.9 SECONDS (11.6-15.0)
[2016-04-16 06:17] LABS: ALBUMIN 1.6 g/dL (3.4-5.0); ALKALINE PHOSPHATASE 261 U/L (46-116); BILIRUBIN - TOTAL 2.47 mg/dL (0.2-1.3); CALCIUM 7.6 mg/dL (8.5-10.1); CARBON DIOXIDE 21.7 mmol/L (21.0-32.0); CHLORIDE - SERUM 104 mmol/L (98-107); PROTEIN - SERUM 5.4 g/dL (6.4-8.2); SODIUM 134 mmol/L (136-145); UREA NITROGEN 17 mg/dL (7-18); eGFR NON AFRICAN AMERICAN 83 mL/min (90-120)
[2016-04-16 06:26] LABS: CALC OSMOLALITY 276 mosm/kg (275-300); GLUCOSE 232 mg/dL (74-106); POTASSIUM - SERUM 3.1 mmol/L (3.5-5.1)
[2016-04-16 06:27] LABS: ALT (SGPT) 21 U/L (10-68)
--- NOTE | 2016-04-16 07:10 | NUR ---
PT LAYING TO LEFT SIDE SLEEPING NO S/S DISTRESS NOTED WILL CONT TO MONITOR.
[2016-04-16 12:11] LABS: BASOPHILS 0.3 % (0.0-2.0); EOSINOPHILS 0.3 % (0-7); IMMATURE GRANULOCYTES 1.1 % (0-5); LYMPHOCYTES 15.1 % (15-50); MCH 32.8 pg (26.0-34.0); MCHC 33.4 g/dL (31.0-37.0); MEAN PLATELET VOLUME 10.7 fL (7.4-10.4); MONOCYTES 10.4 % (2-11); NEUTROPHILS 72.8 % (40-80); RDW 15.9 % (11.5-14.5)
[2016-04-16 12:13] LABS: HEMOGLOBIN 9.7 g/dL (13.5-17.5); PLATELET COUNT 30 10x3/uL (130-400); RBC 2.96 10x6/uL (4.20-6.10); WBC 3.6 10x3/uL (4.8-10.8)
--- NOTE | 2016-04-16 13:10 | NUR ---
PT WAS INSTRUCTED ON HOW TO DO A CLEAN CATCH. HE WILL LET US KNOW WHEN SAMPLE IS READY
--- NOTE | 2016-04-16 14:56 | NUR ---
Patient Name: JEANNIE DODSON Admission Status: ER Accout number: [id number] Admission Date: 04-15-2016 : 1960 Admission Diagnosis:FLU DUE TO UNIDENTIFIED INFLUENZA VIRUS W OTH RESP SHANA Attending: ELOY Current LOS: 1 Anticipated DC Date: Planned Disposition: Home Primary Insurance: MEDICARE A & B Discharge Planning Comments: * Is the patient Alert and Oriented? Yes 0 * How many steps to enter\exit or inside your home? 3 W/RAIL 0 * PCP DR. GROVER 0 * Pharmacy [facility] [place] 0 * Preadmission Environment Home with Family 0 * ADLs Independent 0 * Equipment Nebulizer Rolling Walker Shower Chair 0 * Other Equipment NO MEDICAL EQUIPMENT PROVIDER PREFERENCE 0 * List name and contact numbers for known caregivers / representatives who currently or will assist patient after discharge: DAYLIN FOWLER IN [facility], 0 * Community resources currently utilized None 0 * Please name any agencies selected above. NONE 0 * Additional services required to return to the preadmission environment? No 0 * Can the patient safely return to the preadmission environment? Yes 0 * Has this patient been hospitalized within the prior 30 days at any hospital? No 0 CM MET WITH PT IN ROOM TO DISCUSS DISCHARGE PLANNING AND NEEDS. PT REPORTS LIVING AT HOME INDEPENDENTLY WITH HIS SON. PT HAS NEBULIZER, WALKER AND SHOWER CHAIR WITH NO MEDICAL EQUIPMENT PROVIDER PREFERENCE. PT HAS NO OUTSIDE SERVICES ASSISTING IN THE HOME. CM DISCUSSED AVAILABILITY OF HOME HEALTH, REHAB SERVICES AND MEDICAL EQUIPMENT. PT DENIES DISCHARGE NEEDS, REPORTED THAT HOME HEALTH WAS OF NO USE TO HIM AND HE WAS NOT GOING TO BE WAITING AROUND FOR THEM TO SHOW UP. PT REPORTS [facility] FAMILY WILL PICK HIM UP FOR DISCHARGE HOME. PT PLANS TO DISCHARGE HOME WITH FAMILY, DENIES DISCHARGE NEEDS. CM TO FOLLOW AND ASSIST NEEDED. Backrest Assembler: Rene Le
[2016-04-16 17:21] LABS: UDS - AMPHET NEGATIVE QUAL (NEGATIVE); UDS - BARB NEGATIVE QUAL (NEGATIVE); UDS - BENZO NEGATIVE QUAL (NEGATIVE); UDS - COCAINE NEGATIVE QUAL (NEGATIVE); UDS - METH NEGATIVE QUAL (NEGATIVE); UDS - OPIATE NEGATIVE QUAL (NEGATIVE); UDS - PCP NEGATIVE QUAL (NEGATIVE); UDS - THC NEGATIVE QUAL (NEGATIVE)
[2016-04-16 17:26] LABS: APPEARANCE CLEAR (CLEAR); BILIRUBIN NEGATIVE (NEGATIVE); COLOR U (YELLOW); GLUCOSE NEGATIVE (NEGATIVE); KETONE NEGATIVE (NEGATIVE); LEUKOCYTE ESTERASE NEGATIVE (NEGATIVE); NITRITE NEGATIVE (NEGATIVE); PROTEIN NEGATIVE (NEGATIVE); SPECIFIC GRAVITY 1.015 (1.005-1.020)
[2016-04-16 17:27] LABS: BACTERIA FEW /hpf (NONE SEEN); EPITHELIAL CELLS OCC /hpf (0-5); MUCUS <1+ /lpf (NONE SEEN); RED CELLS - URINE OCC /hpf (0-5); WHITE CELLS - URINE RARE /hpf (0-5)
--- NOTE | 2016-04-16 18:28 | NUR ---
PT SITTING UP IN BED SLEEPING NO S/S DISTRESS WILL CONT TO MONITOR.
--- NOTE | 2016-04-16 20:00 | NUR ---
PT RESTING IN BED. ALERT/ORIENTED. O2 @ 2L/NC WITH NONLABORED RESPIRATIONS. NS @ 50ML/HR INFUSING TO RIGHT HAND. REFUSES CHRONULAC SAYING HE DOES NOT NEED IT. SEE ASSESSMENT. CPOC.
--- NOTE | 2016-04-16 22:05 | NUR ---
HS MEDS HAVE BEEN GIVEN. PT REQUESTED JUICES TO DRINK. FSBS 369, SLIDING SCALE HUMALOG ADMINISTERED.
[2016-04-17 01:07] VITALS: BP 111/55
[2016-04-17 04:49] LABS: BASOPHILS 0.6 % (0.0-2.0); EOSINOPHILS 0 % (0-7); HEMATOCRIT 26.8 % (42.0-54.0); HEMOGLOBIN 9.3 g/dL (13.5-17.5); IMMATURE GRANULOCYTES 0.6 % (0-5); LYMPHOCYTES 19.8 % (15-50); MCH 33.1 pg (26.0-34.0); MCHC 34.7 g/dL (31.0-37.0); MEAN PLATELET VOLUME 10.7 fL (7.4-10.4); MONOCYTES 4.8 % (2-11); NEUTROPHILS 74.2 % (40-80); RBC 2.81 10x6/uL (4.20-6.10); RDW 15.4 % (11.5-14.5)
[2016-04-17 04:52] LABS: MCV 95.4 fL (80.0-100.0); PLATELET COUNT 28 10x3/uL (130-400)
[2016-04-17 04:53] LABS: WBC 1.7 10x3/uL (4.8-10.8)
[2016-04-17 05:01] VITALS: BP 107/54
[2016-04-17 05:08] LABS: INR 1.7 (0.85-1.17)
[2016-04-17 05:18] LABS: ALBUMIN 1.8 g/dL (3.4-5.0); ALKALINE PHOSPHATASE 264 U/L (46-116); ALT (SGPT) 24 U/L (10-68); BILIRUBIN - TOTAL 2.19 mg/dL (0.2-1.3); CALC OSMOLALITY 289 mosm/kg (275-300); CALCIUM 7.6 mg/dL (8.5-10.1); CARBON DIOXIDE 21.4 mmol/L (21.0-32.0); CHLORIDE - SERUM 103 mmol/L (98-107); GLUCOSE 396 mg/dL (74-106); MAGNESIUM - SERUM 1.4 mg/dL (1.8-2.4); PHOSPHOROUS 1.9 mg/dL (2.5-4.9); PROTEIN - SERUM 5.9 g/dL (6.4-8.2); SODIUM 136 mmol/L (136-145); UREA NITROGEN 15 mg/dL (7-18); eGFR NON AFRICAN AMERICAN 83 mL/min (90-120)
[2016-04-17 07:00] VITALS: BP 86/49
--- NOTE | 2016-04-17 07:39 | NUR ---
AM ROUNDING- PT SITTING UP IN BED WITH EYES OPEN RESTING CURRENTLY AWAITING BREAKFAST TRAY. ON EP, WILL COVER LABS PER PROTOCOL. IN DROPLET PRECAUTIONS FOR THE FLU. ON 02 AT 2L VIA NC. IV SEEN TO RIGHT HAND WITH NS RUNNING AT 50CC. FSBS ACHS, 369 THIS AM THAT WAS COVERED BY HEAVY EQUIPMENT SERVICE TECHNICIAN NURSEALEX. PER REPORT PT IS UP AD AMANDA. 0740- HEAVY EQUIPMENT SERVICE TECHNICIAN NURSE ALEX, CALLED DR. PASTOR TO LET HER KNOW OF PTS WBC LEVEL, PLATELET LEVEL, AMMONIA LEVEL, POTASSIUM LEVEL, AND THAT PT REFUSES CHRONULAC. DR. PASTOR STATED " THAT IS PART OF HIS DISEASE PROCESS.". DR. PASTOR IS AWARE. NO NEW ORDERS RECEIVED. HEAVY EQUIPMENT SERVICE TECHNICIAN NURSE, ALEX FILLED OUT CRITICAL LAB SHEET FOR ALL CRITICAL LABS. WILL CONTINUE TO MONITOR.
--- NOTE | 2016-04-17 09:45 | NUR ---
ON MONITOR SHOWING ST, HR 107.
--- NOTE | 2016-04-17 09:50 | NUR ---
TREATED PT PER EP. WILL CONTINUE TO MONITOR AND CHECK PER PROTOCOL.
[2016-04-17 12:00] VITALS: BP 88/52
--- NOTE | 2016-04-17 12:09 | NUR ---
DR. PASTOR ON UNIT. NOTIFIED HER OF PTS FSBS BEING 452 ORDERED PER SLIDING SCALE. NO NEW ORDERS RECEIVED. TX PT PER SLIDING SCALE. WILL CONTINUE TO MONITOR.
[2016-04-17 16:00] VITALS: BP 116/51
--- NOTE | 2016-04-17 17:50 | NUR ---
PT LAYING IN BED ON BACK WITH EYES OPEN RESTING. DENIES ANY NEED AT CURRENT TIME. WILL CONTINUE TO MONITOR.
[2016-04-17 20:15] VITALS: BP 102/50
--- NOTE | 2016-04-17 21:58 | NUR ---
RESTING IN BED WATCHING TV. HAS SUGARED MT DEW AT BEDSIDE. PT SPONTANEOUSLY STATED THAT MT HAD BEEN SITTING ON BEDSIDE TABLE FOR 2 DAYS AND THAT HE WASNT DRINGKING IT. ALERT ORIENTED CONVERSANT. DENIES NEEDS. NO ACUTE DISTRESS NOTED
--- NOTE | 2016-04-17 22:02 | NUR ---
PT REFUSED CHRONULAC DURING MEDICATION ADMINISTRATION. EXPLAINED TO PT THAT CHRONULAC WAS PERSCRIBED FOR AMONIA LEVELS. PT STATED THAT HE STILL DIDNT WANT IT.
[2016-04-18 00:05] VITALS: BP 117/58
[2016-04-18 04:12] VITALS: BP 103/53
--- NOTE | 2016-04-18 05:00 | NUR ---
PT HAS RESTED WITH NO DISTRESS. CPOC.
[2016-04-18 05:02] LABS: BASOPHILS 0.2 % (0.0-2.0); EOSINOPHILS 0 % (0-7); HEMOGLOBIN 9.7 g/dL (13.5-17.5); IMMATURE GRANULOCYTES 6.7 % (0-5); LYMPHOCYTES 6.9 % (15-50); MCH 33.2 pg (26.0-34.0); MCHC 34.6 g/dL (31.0-37.0); MCV 95.9 fL (80.0-100.0); MEAN PLATELET VOLUME 11.1 fL (7.4-10.4); MONOCYTES 4.6 % (2-11); NEUTROPHILS 81.6 % (40-80); RBC 2.92 10x6/uL (4.20-6.10); RDW 15.7 % (11.5-14.5); WBC 9.9 10x3/uL (4.8-10.8)
[2016-04-18 05:07] LABS: PLATELET COUNT 34 10x3/uL (130-400)
[2016-04-18 05:20] LABS: INR 1.62 (0.85-1.17); PROTIME 19.2 SECONDS (11.6-15.0)
[2016-04-18 05:29] LABS: ALBUMIN 1.9 g/dL (3.4-5.0); ALKALINE PHOSPHATASE 288 U/L (46-116); CALCIUM 8.1 mg/dL (8.5-10.1); CARBON DIOXIDE 21.2 mmol/L (21.0-32.0); CHLORIDE - SERUM 104 mmol/L (98-107); PROTEIN - SERUM 6.5 g/dL (6.4-8.2); SODIUM 139 mmol/L (136-145); eGFR NON AFRICAN AMERICAN 83 mL/min (90-120)
[2016-04-18 05:34] LABS: CALC OSMOLALITY 280 mosm/kg (275-300); GLUCOSE 174 mg/dL (74-106); UREA NITROGEN 10 mg/dL (7-18)
[2016-04-18 05:35] LABS: ALT (SGPT) 35 U/L (10-68); POTASSIUM - SERUM 2.7 mmol/L (3.5-5.1)
--- NOTE | 2016-04-18 05:57 | NUR ---
PT AM K+ 2.7. ADMINISTERED 40 MEQ MIX WITH ORANGE JUICE. PT TOOK ONE SIP AND REFUSED
--- NOTE | 2016-04-18 07:01 | NUR ---
AM ROUNDING- PT LAYING IN BED ON LEFT SIDE WITH EYES OPEN RESTING. ON MONITOR SHOWING ST, HR 109. FSBS ACHS, COVERED BY POLITICAL SCIENCE FACULTY MEMBER NURSEJORDEN. IN DROPLET ISOLATION FOR THE FLU. ON 02 AT 2L VIA NC. IV SEEN TO RIGHT HAND WITH NS RUNNING AT 50CC. PTS POTASSIUM THIS AM WAS 2.7, POLITICAL SCIENCE FACULTY MEMBER NURSE JOSÉ ANTONIO LEONARDO STATED HE COVERED IT PER EP. RE-ORDERED LABS FOR 0800. WILL CONTINUE TO MONITOR.
[2016-04-18 09:00] VITALS: BP 91/54
[2016-04-18 12:00] VITALS: BP 111/54
[2016-04-18 16:00] VITALS: BP 104/52
--- NOTE | 2016-04-18 17:59 | NUR ---
PT SITTING UP IN BED COMMUNICATING WITH GUEST AT BEDSIDE. NO NEED AT CURREN TIME. WILL CONTINUE TO MONITOR.
--- NOTE | 2016-04-18 19:44 | NUR ---
RESUMED CARE OF PT, COMPLAINS OF SOB AFTER WALKING TO RESTROOM, SET UP 02-2L, IV-R.HAND, [id number], ISO-DROPLET(FLU),CALL LIGHT IN REACH, BED IS LOW, SRX2, WILL CONTINUE TO MONITOR
[2016-04-18 20:00] VITALS: BP 111/54
[2016-04-19] VITALS: BP 111/50
--- NOTE | 2016-04-19 01:32 | NUR ---
PT RESTING WITH EYES CLOSED. RESP EVEN AND REGULAR. SR UP X2 CALL LIGHT WITHIN REACH.
[2016-04-19 04:00] VITALS: BP 88/57
[2016-04-19 05:33] LABS: BASOPHILS 0.2 % (0.0-2.0); EOSINOPHILS 0 % (0-7); HEMATOCRIT 28.9 % (42.0-54.0); HEMOGLOBIN 9.6 g/dL (13.5-17.5); IMMATURE GRANULOCYTES 6.9 % (0-5); LYMPHOCYTES 7.6 % (15-50); MCH 32.7 pg (26.0-34.0); MCHC 33.2 g/dL (31.0-37.0); MEAN PLATELET VOLUME 11.2 fL (7.4-10.4); MONOCYTES 6.8 % (2-11); NEUTROPHILS 78.5 % (40-80); RBC 2.94 10x6/uL (4.20-6.10)
[2016-04-19 05:47] LABS: MCV 98.3 fL (80.0-100.0); WBC 13.5 10x3/uL (4.8-10.8)
[2016-04-19 05:48] LABS: PLATELET COUNT 45 10x3/uL (130-400)
[2016-04-19 05:51] LABS: APTT 32.4 SECONDS (22.8-39.4); INR 1.95 (0.85-1.17); PROTIME 22.2 SECONDS (11.6-15.0)
[2016-04-19 05:53] LABS: ALBUMIN 1.9 g/dL (3.4-5.0); ANION GAP 14.6 mmol/L (8-16); BILIRUBIN - TOTAL 2.53 mg/dL (0.2-1.3); CALCIUM 8.2 mg/dL (8.5-10.1); CARBON DIOXIDE 22.8 mmol/L (21.0-32.0); CREATININE - SERUM 1.1 mg/dL (0.6-1.3); POTASSIUM - SERUM 3.4 mmol/L (3.5-5.1); PROTEIN - SERUM 6.3 g/dL (6.4-8.2)
[2016-04-19 08:16] VITALS: BP 93/46
--- NOTE | 2016-04-19 08:17 | NUR ---
ASSESSMENT DONE. PT SLEEPING. EASILY AWAKEN. PT NOT WEARING O2. DENIES SOB OR DISCOMFORT. DENIES NEEDS AT THIS TIME. CALL LIGHT WITH IN REACH. WILL CONT. TO MONITOR.
--- NOTE | 2016-04-19 09:07 | NUR ---
NURSE IN PT'S ROOM TO GIVE MEDS. PT SLEEPING. DIFFICULT TO AROUSE. CALLED PT'S NAME AND SHOOK HIM SEVERAL TIMES. PT OPENED EYES AND YELLED "WHAT!" NURSE EXPLAINED THAT IT WAS TIME TO TAKE HIS MEDICATION. PT RESPONDED BUT SPEACH WAS UNCLEAR. NURSE CHECK FSBS WHICH WAS 219. PT'S B/P WAS 93/46. PT DID SIT UP AND TAKE PO MEDS WITHOUT DIFFICULTY. LASIX AND ALTACTONE HELD AT THIS TIME D/T LOW B/P. CALL LIGHT WITH IN REACH. WILL CONT. TO MONITOR.
--- NOTE | 2016-04-19 09:55 | NUR ---
RESTS IN ISOLATION ROOM WITH CALL LIGHT IN REACH. WILL MONITOR NEEDS.
[2016-04-19 11:37] VITALS: BP 93/51
--- NOTE | 2016-04-19 11:55 | NUR ---
PT SITTING UP IN BED EATING. A/O X3. STATES HE WANTS TO GO HOME. DENIES NEEDS AT THIS TIME. CALL LIGHT WITH IN REACH. WILL CONT. TO MONITOR.
--- NOTE | 2016-04-19 15:30 | NUR ---
PT ASKED CLAIM CLINICIAN FOR PROFESSOR OF APOLOGETICS SO HE COULD SMOKE. CLAIM CLINICIAN REMINDED PT THAT SMOKING IN THIS FACILITY WAS NOT PERMITTED.
[2016-04-19 15:53] VITALS: BP 106/55
--- NOTE | 2016-04-19 17:38 | NUR ---
PT SITTING UP IN BED VISTING WITH SPOUSE. WANTS TO GO HOME.
--- NOTE | 2016-04-19 19:47 | NUR ---
PT IS RESTING IN BED WITH EYES OPEN. ALERT AND ORIENTED X 3. DENIES ANY PAIN OR DISCOMFORT. PT STATES HE WANTS TO BE DC'D HOME. WAITING ON DR TEAGUE TO MAKE ROUNDS TO ASK HER. IV INFUSING TO RIGHT HAND WITHOUT DIFFICULTY. NO REDNESS OR EDEMA NOTED AT THE INSERTION SITE. O2 IS ON @ 2LPM PER NC. DROPLETT PRECAUTIONS OBSERVED FOR A NEGATIVE FLU SWAB. TELEMETRY UNIT IS INTACT. SR'S ARE UP X 2 IN BED. CALL LIGHT AND BEDSIDE TABLE ARE WITHIN EASY REACH.
[2016-04-19 20:00] VITALS: BP 111/57
--- NOTE | 2016-04-19 22:27 | NUR ---
PT IS RESTING QUIETLY IN BED WITH EYES CLOSED. RESPS ARE EVEN AND UNLABORED. NO ACUTE DISTRESS NOTED.
--- NOTE | 2016-04-19 23:36 | NUR ---
REMAINS IN DROPLET ISOLATION FOR NEGATIVE FLU SWAB PER HOSPITAL PROTOCOL. DENIES NEEDS AT THIS TIME. CONTINUE TO MONITOR.
[2016-04-20] VITALS: BP 99/58
--- NOTE | 2016-04-20 01:50 | NUR ---
RESTING IN BED WITH EYES CLOSED.
--- NOTE | 2016-04-20 03:34 | NUR ---
PT RESTING IN BED WITH EYES CLOSED. NO DISTRESS NOTED.
[2016-04-20 06:13] LABS: BASOPHILS 0.1 % (0.0-2.0); EOSINOPHILS 0 % (0-7); HEMATOCRIT 29.8 % (42.0-54.0); HEMOGLOBIN 9.8 g/dL (13.5-17.5); IMMATURE GRANULOCYTES 1.7 % (0-5); LYMPHOCYTES 7.1 % (15-50); MCH 32.8 pg (26.0-34.0); MCHC 32.9 g/dL (31.0-37.0); MCV 99.7 fL (80.0-100.0); MEAN PLATELET VOLUME 10.7 fL (7.4-10.4); MONOCYTES 4.9 % (2-11); NEUTROPHILS 86.2 % (40-80); RBC 2.99 10x6/uL (4.20-6.10); RDW 16.5 % (11.5-14.5); WBC 15.3 10x3/uL (4.8-10.8)
[2016-04-20 06:19] LABS: APTT 33.6 SECONDS (22.8-39.4); INR 1.95 (0.85-1.17); PLATELET COUNT 45 10x3/uL (130-400); PROTIME 22.3 SECONDS (11.6-15.0)
[2016-04-20 06:24] LABS: ALBUMIN 1.9 g/dL (3.4-5.0); ANION GAP 17.3 mmol/L (8-16); BILIRUBIN - TOTAL 2.5 mg/dL (0.2-1.3); CALCIUM 8.1 mg/dL (8.5-10.1); CARBON DIOXIDE 21.8 mmol/L (21.0-32.0); CREATININE - SERUM 1.2 mg/dL (0.6-1.3); POTASSIUM - SERUM 3.1 mmol/L (3.5-5.1); PROTEIN - SERUM 6.5 g/dL (6.4-8.2)
--- NOTE | 2016-04-20 06:37 | NUR ---
PT IS RESTING IN BED WATCHING TV. FAMILY MEMBER IS AT BEDSIDE. NO NEEDS VOICED. DRESSING TO FOOT IS CDI. GOOD CAPILLARY REFILL NOTED.
--- NOTE | 2016-04-20 06:38 | NUR ---
PT IS RESTING IN BED WATCHING TV. NO NEEDS VOICED. PT ANXIOUS TO POSSIBLE DC HOME TODAY.
--- NOTE | 2016-04-20 07:08 | NUR ---
RECEIVED PT REPORT. NO OTHER NEEDS AT THIS TIME. WILL CONTINUE PLAN OF CARE.
[2016-04-20 07:46] VITALS: BP 114/55
--- NOTE | 2016-04-20 08:45 | NUR ---
PT IS ALERT. ASSESSMENT DONE PER FLOWSHEET. NO OTHER NEEDS AT THIS TIME. WILL CONTINUE TO MONTIOR.
[2016-04-20 11:36] VITALS: BP 113/57
[2016-04-20 15:18] VITALS: BP 114/55
--- NOTE | 2016-04-20 16:01 | NUR ---
Patient Name: JEANNIE DODSON Encounter No: [id number] : 1960 Primary Insurance: MEDICARE A & B Anticipated DC Date: Planned Disposition: Home DCP follow-up note: CM RECEIVED REQUEST TO SPEAK TO PT AND SPOUSE REGARDING NEED FOR PRESCRIPTION DRUG COVERAGE IN ORDER TO QUALIFY FOR THE ORGAN TRANSPLANT LIST. CM MET WITH PT AND SPOUSE IN ROOM. CM DISCUSSED MEDICARE AND MEDICAID PROGRAMS. PT HAS MEDICARE PART A & B WITH NO PRESCRIPTION COVERAGE, HAS NEVER PURCHASED DRUG COVERAGE FROM MEDICARE. PT DENIES HAVING ANY ASSETS THAT WOULD HINDER GETTING MEDICAID. PT'S SPOUSE REPORTS ONE DOCTOR'S OFFICE MAY HAVE FILED FOR MEDICAID AND SHE WILL CHECK ON THAT AND IF NOT, ASSIST PT WITH APPLYING FOR MEDICAID AT THE [facility] OFFICE. CM PROVIDED PT AND SPOUSE WITH MEDICARE INFORMATION AND PHONE NUMBERS REGARDING INSURANCE FROM MEDICARE. PT PLANS TO DISCHARGE HOME WITH FAMILY, DENIES DISCHARGE NEEDS. CM TO FOLLOW AND ASSIST NEEDED. High School Tutor: Rene Le
--- NOTE | 2016-04-20 19:35 | NUR ---
ASSESSMENT COMPLETE, A&O, RSTING ON LEFT SIDE, 02 AT 2 LITER VIA NC, RESPERATIONS EVEN AND UNLABORED, BED LOW, CL IN REACH, WILL CONT TO MONITOR.
[2016-04-20 20:02] VITALS: BP 110/55
--- NOTE | 2016-04-20 21:37 | NUR ---
HS MEDS GIVEN WITH FRESH ICEWATER. BS 209, COVERED PER S/S. AMBIEN 10 MG GIVEN AT PT REQUEST TO ASSIST WITH SLEEPING. DENIES PAIN OR OTHER NEEDS, BED LOW, CL IN REACH, WILL CONT TO MONITOR.
[2016-04-21 01:39] VITALS: BP 98/52
--- NOTE | 2016-04-21 03:24 | NUR ---
RESTING WITH EYES CLOSED, RESPERATIONS EVEN, NO S/S DISTRESS NOTED.
--- NOTE | 2016-04-21 04:09 | NUR ---
NO DISTRESS PT LAYING IN BED RESPERATIONS EVEN AND UNLABORED WILL MONITOR
[2016-04-21 04:37] VITALS: BP 111/60
[2016-04-21 06:50] LABS: HEMOGLOBIN 11.5 g/dL (13.5-17.5); MCH 32.8 pg (26.0-34.0); MCHC 32.9 g/dL (31.0-37.0); MCV 99.7 fL (80.0-100.0); MEAN PLATELET VOLUME 10.7 fL (7.4-10.4); PLATELET COUNT 57 10x3/uL (130-400); RBC 3.51 10x6/uL (4.20-6.10); RDW 17.5 % (11.5-14.5); WBC 25.5 10x3/uL (4.8-10.8)
[2016-04-21 06:54] LABS: CALCIUM 8.5 mg/dL (8.5-10.1); CHLORIDE - SERUM 105 mmol/L (98-107); SODIUM 142 mmol/L (136-145); UREA NITROGEN 12 mg/dL (7-18); eGFR NON AFRICAN AMERICAN 83 mL/min (90-120)
[2016-04-21 06:56] LABS: CALC OSMOLALITY 279 mosm/kg (275-300); CARBON DIOXIDE 29.4 mmol/L (21.0-32.0); GLUCOSE 53 mg/dL (74-106)
[2016-04-21 07:13] LABS: EOSINOPHILS 1 % (0-7); LYMPHOCYTES 6 % (15-50); MONOCYTES 3 % (2-11); NEUTROPHILS 84 % (40-80)
[2016-04-21 07:16] LABS: TOXIC GRANULATION OCC
[2016-04-21 08:00] VITALS: BP 109/60
[2016-04-21 08:08] LABS: PLATELET ESTIMATE DECREASED
--- NOTE | 2016-04-21 09:51 | NUR ---
PT IS ALERT. ASSESSMENT DONE PER FLOWSHEET. NO CO PAIN AT THIS TIME. WILL CONTINUE TO MONTIOR.
[2016-04-21] MEDS ORDERED: VIBRAMYCIN 100100 MG PO (10:26)
[2016-04-21] MEDS ORDERED: PREDNISONE10 MG PO (10:28)
--- NOTE | 2016-04-21 11:32 | NUR ---
Patient Name: JEANNIE DODSON Encounter No: [id number] : 1960 Primary Insurance: MEDICARE A & B Anticipated DC Date: 04-21-2016 Planned Disposition: Home DCP follow-up note: CM MET WITH PT IN ROOM TO DISCUSS DISCHARGE NEEDS AND PLANNING. CM DISCUSSED AVAILABILITY OF HOME HEALTH, REHAB SERVICES AND MEDICAL EQUIPMENT. PT DENIES DISCHARGE NEEDS. FAMILY TO TRANSPORT HOME AT DISCHARGE. PT REPORTS HE WILL PAY [facility] FOR HIS MEDICATIONS AT [facility] AND THAT THE PHARMACY WORKS WITH HIM ON RED WHEN THEY CAN. IMPORTANT MESSAGE FROM MEDICARE PROVIDED AND EXPLAINED. Rene eL, CASE MANAGEMENT
--- NOTE | 2016-04-21 13:08 | NUR ---
PT IS ALERT. NO SS OF DISTRESS WILL CONTINUE TO MONITOR.
--- NOTE | 2016-05-27 15:18 | DS ---
PATIENT:JEANNIE DODSON :62 MEDICAL RECORD: [id number] DISCHARGE SUMMARY ADMISSION DATE: 04/15/16 DISCHARGE DATE: 04/21/16 This is a discharge from the inpatient hospital dated 04/21/2016. DISCHARGE DIAGNOSES: 1. Flu. 2. Hypoalbuminemia. 3. Elevated alkaline phosphatase. 4. Thrombocytopenia. 5. Leukopenia. 6. End-stage liver disease. 7. Chronic obstructive pulmonary disease. 8. Diabetes type 2. 9. Ascites/cirrhosis. 10. Anemia of chronic disease. 11. Hypokalemia. CONSULTS THIS HOSPITALIZATION: Hem/onc with Dr. Nathan. HOSPITAL COURSE: Full H&P is located elsewhere on the chart on this 55-year-old male, who was admitted for treatment of influenza. He had been diagnosed in the clinic and did not pick at medications due to cost. He was started on Tamiflu, IV fluids for hydration. Fingerstick blood sugars were monitored throughout his hospital stay with appropriate adjustments in medications as needed. Electrolytes were managed by protocol. He was started on doxycycline for antibiotic coverage. Physical therapy was consulted for strengthening. Dr. Nathan was consulted for pancytopenia. His leukopenia responded to 1 dose of Granix. Recommendations were to transfuse platelets is lower than 20,000 or if bleeding. His symptoms improved. His labs were stable, close to baseline. He was considered stable for discharge home on 04/21/2016. DISCHARGE MEDICATIONS: As per discharge medication reconciliation. DISCHARGE DISPOSITION: The patient is discharged home. He will continue his current diet and level of activity. He will follow up with primary care in 1 week and will follow up with consultants as directed. At least 30 minutes was spent in this discharge activity. TRANSINT:[id number] Voice Confirmation ID: [id number] DOCUMENT ID: [id number] Dictated By: WHIT WICK I have interviewed/examined the above patient and agree with these documented findings. DISCHARGE SUMMARY REPORT [id number] JEANNIE DODSON, JEANNIE WHITTINGTON at 1346 at 1518 CC: [id number] DICTATION DATE: 05/21/16 171 AQUATIC DIRECTOR: 05/22/16 0557 DIS IN 04/21/16 [id number] [place] [address]
== END 2016-04-21 14:53 | disposition home or self-care (01) | DRG 191 ==
LOC: D.ER 08:01 → D.M2 11:41
PROVIDERS: Emergency Medicine; Family Medicine; ADMIT Emergency Medicine
DX: J44.1 Chronic obstructive pulmonary disease with (acute) exacerbation (principal); R18.8 Other ascites; J11.1 Influenza due to unidentified influenza virus with other respiratory manifestations; E88.09 Other disorders of plasma-protein metabolism, not elsewhere classified; R74.8 Abnormal levels of other serum enzymes; D69.6 Thrombocytopenia, unspecified; K72.90 Hepatic failure, unspecified without coma; E11.9 Type 2 diabetes mellitus without complications; D63.8 Anemia in other chronic diseases classified elsewhere; D72.819 Decreased white blood cell count, unspecified; Z79.4 Long term (current) use of insulin

== ENCOUNTER 2016-04-22 15:10 | Inpatient (IN) | payer MEDICARE ==
[~2016-04-22] VITALS: Ht 182.9 cm; Wt 64.0 kg
[~2016-04-22 15:10] MED LIST changes: +PREDNISONE10 MG PO; +VIBRAMYCIN 100100 MG PO
[2016-04-22 15:57] LABS: BASOPHILS 2.3 % (0.0-2.0); EOSINOPHILS 2.4 % (0-7); HEMATOCRIT 41.6 % (42.0-54.0); IMMATURE GRANULOCYTES 5.5 % (0-5); MCH 33.9 pg (26.0-34.0); MCHC 33.9 g/dL (31.0-37.0); MEAN PLATELET VOLUME 11.1 fL (7.4-10.4); MONOCYTES 15.7 % (2-11); NEUTROPHILS 61.1 % (40-80); PLATELET COUNT 55 10x3/uL (130-400); RBC 4.16 10x6/uL (4.20-6.10); RDW 17.7 % (11.5-14.5)
[2016-04-22 15:58] LABS: HEMOGLOBIN 14.1 g/dL (13.5-17.5); WBC 15.9 10x3/uL (4.8-10.8)
[2016-04-22 16:19] LABS: ALBUMIN 2.3 g/dL (3.4-5.0); ALKALINE PHOSPHATASE 365 U/L (46-116); ALT (SGPT) 59 U/L (10-68); AMYLASE - SERUM 38 U/L (25-115); BILIRUBIN - TOTAL 3.03 mg/dL (0.2-1.3); CALC OSMOLALITY 283 mosm/kg (275-300); CALCIUM 8.6 mg/dL (8.5-10.1); CARBON DIOXIDE 28.5 mmol/L (21.0-32.0); CHLORIDE - SERUM 104 mmol/L (98-107); GLUCOSE 74 mg/dL (74-106); LIPASE 228 U/L (73-393); POTASSIUM - SERUM 3.2 mmol/L (3.5-5.1); PROTEIN - SERUM 7.5 g/dL (6.4-8.2); SODIUM 142 mmol/L (136-145); eGFR NON AFRICAN AMERICAN 83 mL/min (90-120)
[2016-04-22 16:20] LABS: UREA NITROGEN 19 mg/dL (7-18)
[2016-04-22 23:49] VITALS: BP 106/68; BMI 19.1
[2016-04-23] VITALS: BP 106/68
[2016-04-23 04:00] VITALS: BP 105/63
[2016-04-23 05:20] LABS: BASOPHILS 1.2 % (0.0-2.0); EOSINOPHILS 2.1 % (0-7); IMMATURE GRANULOCYTES 5.9 % (0-5); LYMPHOCYTES 25.4 % (15-50); MCH 32.9 pg (26.0-34.0); MCHC 32.9 g/dL (31.0-37.0); MEAN PLATELET VOLUME 10.5 fL (7.4-10.4); MONOCYTES 13.3 % (2-11); NEUTROPHILS 52.1 % (40-80)
[2016-04-23 05:26] LABS: HEMATOCRIT 31.6 % (42.0-54.0); HEMOGLOBIN 10.4 g/dL (13.5-17.5); PLATELET COUNT 25 10x3/uL (130-400); RBC 3.16 10x6/uL (4.20-6.10); WBC 3.4 10x3/uL (4.8-10.8)
[2016-04-23 05:48] LABS: CALC OSMOLALITY 291 mosm/kg (275-300); CALCIUM 7.7 mg/dL (8.5-10.1); CARBON DIOXIDE 27.4 mmol/L (21.0-32.0); CHLORIDE - SERUM 108 mmol/L (98-107); CREATININE - SERUM 0.9 mg/dL (0.6-1.3); SODIUM 143 mmol/L (136-145); UREA NITROGEN 20 mg/dL (7-18); eGFR NON AFRICAN AMERICAN > 90 mL/min (90-120)
[2016-04-23 05:49] LABS: GLUCOSE 177 mg/dL (74-106)
--- NOTE | 2016-04-23 07:38 | NUR ---
DENIES NEEDS AT PRESENT TIME, STATES THAT HE IS HUNGRY. HE IS ON CLEAR LIQUIDS. OFFERED HIM WATER FOR PRESENT TIME, REFUSED "THAT SHIT". SALINE LOCK SEEN TO RIGHT FA, WILL CONTINUE TO MONITOR. INSTRUCTED PATIENT IN NEED TO GET URINE SAMPLE.
--- NOTE | 2016-04-23 08:40 | NUR ---
UA SENT TO LAB ORDERED.
[2016-04-23 09:41] LABS: APPEARANCE HAZY (CLEAR); COLOR DK YELLOW (YELLOW); GLUCOSE NEGATIVE (NEGATIVE); KETONE NEGATIVE (NEGATIVE); LEUKOCYTE ESTERASE TRACE (NEGATIVE); NITRITE NEGATIVE (NEGATIVE); PROTEIN TRACE mg/dL (NEGATIVE)
[2016-04-23 09:42] LABS: BACTERIA FEW /hpf (NONE SEEN); BILIRUBIN NEGATIVE (NEGATIVE); EPITHELIAL CELLS 0-5 /hpf (0-5); MUCUS >1+ /lpf (NONE SEEN); WHITE CELLS - URINE 0-5 /hpf (0-5)
[2016-04-23 10:00] VITALS: BP 99/60
[2016-04-23 11:41] VITALS: BP 95/56
[2016-04-23 13:57] VITALS: Ht 182.9 cm; Wt 64.0 kg
--- NOTE | 2016-04-23 14:42 | NUR ---
1427-MORE MEDICATION GIVEN TO PATIENT, SEE EMAR. ASKED PATIENT IF HE HAS USED THE URNIAL ANYMORE OR HAD BM TODAY (HAS ASKED HIM EARLY THIS SHIFT TO PLEASE NOTIFY US EACH TIME HE WENT). PATIENT REPORTS THAT HE HAS BEEN USING THE RESTROOM AND HAS ALSO HAD 3 BM'S TODAY AND DID NOT TELL US. AGAIN, I ASKED THAT HE PLEASE NOTIFY US, STATES HE WILL. CONTINUE TO MONITOR.
[2016-04-23 15:43] VITALS: BP 113/70
--- NOTE | 2016-04-23 17:32 | NUR ---
Patient Name: JEANNIE DODSON Admission Status: ER Accout number: [id number] Admission Date: 04-22-2016 : 1960 Admission Diagnosis:HEPATIC FAILURE, UNSPECIFIED WITHOUT COMA Attending: BLANCA Current LOS: 1 Anticipated DC Date: Planned Disposition: Home Primary Insurance: MEDICARE A & B Discharge Planning Comments: * Is the patient Alert and Oriented? Yes 0 * How many steps to enter\\exit or inside your home? 3 W/RAIL 0 * PCP DR. GROVER 0 * Pharmacy [facility] [place] 0 * Preadmission Environment Home with Family 0 * ADLs Independent 0 * Equipment Nebulizer Rolling Walker Shower Chair 0 * Other Equipment NO MEDICAL EQUIPMENT PROVIDER PREFERENCE 0 * List name and contact numbers for known caregivers / representatives who currently or will assist patient after discharge: MANUEL WICK, DAUGHTER IN LAW, 0 * Community resources currently utilized None 0 * Please name any agencies selected above. NONE 0 * Additional services required to return to the preadmission environment? No 0 * Can the patient safely return to the preadmission environment? Yes 0 * Has this patient been hospitalized within the prior 30 days at any hospital? Yes 0 CM MET WITH PT IN ROOM TO DISCUSS DISCHARGE PLANNING AND NEEDS. PT REPORTS LIVING AT HOME INDEPENDENTLY WITH ADULT SON. PT HAS NEBLUZER, WALKER AND SHOWER CHAIR. PT HAS NO MEDICAL EQUIPMENT PROVIDER PREFERENCE AND NO OUTSIDE SERVICES ASSISTING IN THE HOME. CM DISCUSSED AVAILABILITY OF HOME HEALTH, REHAB SERVICES AND MEDICAL EQUIPMENT. PT DENIES DISCHARGE NEEDS, REPORTING HE IS NOT HOME BOUND AND IS NOT WAITING AROUND FOR HOME HEALTH TO SHOW UP. PT REPORTS THE DOCTOR IS ARRANGING [facility] FOR HIM. PT REPORTS HE DID GET HIS MEDICATIONS FILLED AFTER DISCHARGE AND CAME BACK TO THE HOSPTIAL BECAUSE HE HAS THE FLU AGAIN. PT REPORTS HIS FAMILY WILL PICK HIM UP FOR DISCHARGE HOME. CM RECEIVED CALL AND SPOKE TO MICKI OF [facility] WHO REPORTED THAT THE HOSPITAL ATTEMPTED TO ASSIST PT WITH MEDICAID APPLICATION IN MARCH 2016 AND PT WAS OVER INCOME LIMIT FOR SPEND DOWN AND DID NOT QUALIFY FOR "QMB" MEDICAID. CM NOTIFIED PT WHO REPORTED HIS EX WILL FOLLOW UP WITH THE DEPARTMENT OF HUMAN SERVICES AND TRY FOR MEDICAID AGAIN. PT PLANS TO DISCHARGE HOME WITH FAMILY, DENIES DISCHARGE NEEDS. CM TO FOLLOW AND ASSIST NEEDED. Water Safety Teacher: Rene Le
[2016-04-23 21:01] VITALS: BP 90/43
--- NOTE | 2016-04-23 21:02 | NUR ---
RESUMED CARE OF PT AND PT ASSESSMENT COMPLETED NO DISTRESS OBSERVED CALL LIGHTI N REACH SRX2 BED LOW AND LOCKED ABD DISTENDED AND TIGHT FROM [employer] PT RECIVED TIPS IN PAST UNABLE TO DUE AT THIS TIME DUE TO REPORTED NOT ENOUGH FLUID BUILD UP PT AMBUYLATORY WITH NO ASSISTANCE NEEDED CALL LIGHT IN REACH SRX2 BED LOW AND LOCKED WILL MONITOR
--- NOTE | 2016-04-23 23:05 | NUR ---
PT LAYING IN BED NO DISTRESS OBSERVED EYES CLOSED AND PT APPERS TO BE SLEEPING AT THIS TIME WILL MONITOR
[2016-04-24 01:09] VITALS: BP 84/46
[2016-04-24 05:23] VITALS: BP 105/61
[2016-04-24 05:41] LABS: BASOPHILS 0.3 % (0.0-2.0); EOSINOPHILS 2.1 % (0-7); HEMATOCRIT 32.8 % (42.0-54.0); HEMOGLOBIN 10.8 g/dL (13.5-17.5); IMMATURE GRANULOCYTES 4.5 % (0-5); LYMPHOCYTES 24.9 % (15-50); MCH 33.1 pg (26.0-34.0); MCHC 32.9 g/dL (31.0-37.0); MCV 100.6 fL (80.0-100.0); MEAN PLATELET VOLUME 9.8 fL (7.4-10.4); NEUTROPHILS 59.2 % (40-80); RBC 3.26 10x6/uL (4.20-6.10); RDW 17.3 % (11.5-14.5); WBC 3.8 10x3/uL (4.8-10.8)
[2016-04-24 05:47] LABS: PLATELET COUNT 29 10x3/uL (130-400)
[2016-04-24 05:52] LABS: INR 1.91 (0.85-1.17); PROTIME 21.9 SECONDS (11.6-15.0)
[2016-04-24 05:57] LABS: ALKALINE PHOSPHATASE 280 U/L (46-116); CALC OSMOLALITY 285 mosm/kg (275-300); CALCIUM 7.4 mg/dL (8.5-10.1); CARBON DIOXIDE 27.7 mmol/L (21.0-32.0); CHLORIDE - SERUM 107 mmol/L (98-107); GLUCOSE 115 mg/dL (74-106); MAGNESIUM - SERUM 1.2 mg/dL (1.8-2.4); SODIUM 142 mmol/L (136-145); UREA NITROGEN 18 mg/dL (7-18); eGFR NON AFRICAN AMERICAN 83 mL/min (90-120)
[2016-04-24 05:58] LABS: ALBUMIN 1.7 g/dL (3.4-5.0); ALT (SGPT) 44 U/L (10-68); POTASSIUM - SERUM 2.8 mmol/L (3.5-5.1)
[2016-04-24 08:09] VITALS: BP 110/63
--- NOTE | 2016-04-24 08:10 | NUR ---
ASSESSMENT DONE. PT SITTING UP ON SIDE OF BED EATING BREAKFAST. DENIES SOB OR ABD PAIN. DENIES NEEDS AT THIS TIME. CALL LIGHT WITH IN REACH. WILL CONT. TO MONITOR.
--- NOTE | 2016-04-24 09:40 | NUR ---
PT'S K+ 2.8. 1ST DOSE OF ORAL LIQUID K+ GIVEN. PT REFUSED CHRONULAC, AND STATES HE WILL NOT TAKE HIS NEXT DOSE EITHER. PER CAMMIE LOPEZ. WILL CONT. TO MONITOR.
[2016-04-24 11:36] VITALS: BP 101/62
--- NOTE | 2016-04-24 13:14 | NUR ---
RESTS WITH EYES CLOSED. CALL LIGHT IN REACH. WILL MONITOR NEEDS.
[2016-04-24 14:40] LABS: ANION GAP 9.6 mmol/L (8-16); CALCIUM 7.5 mg/dL (8.5-10.1); CARBON DIOXIDE 27.4 mmol/L (21.0-32.0); CREATININE - SERUM 1.1 mg/dL (0.6-1.3)
[2016-04-24 15:37] VITALS: BP 102/68
--- NOTE | 2016-04-24 16:52 | NUR ---
PT'S IV REMOVED. D/C PAPERWORK IS BEING COMPLETED AT THE MOMENT. PT REFUSED REPLACEMENT ORAL POTASSIUM. NURSE EXPLAINED THE RISKS OF LOW POTASSIUM AND PT STILL DECLINED. PT STATES HIS TRANSPORTATION HOME IS ON THE WAY.
--- NOTE | 2016-04-24 17:22 | NUR ---
WENT OVER DC PAPERWORK WITH PT PT VERBALIZES UNDERSTANDING. PT WAITING ON RIDE HOME.
--- NOTE | 2016-04-24 17:32 | NUR ---
PT D/C'D HOME VIA PRIVATE VEHICLE. TAKEN TO FRONT ENTRANCE IN BY WEATHERIZATION SPECIALIST. PT'S IV HAD ALREADY BEEN REMOVED.
== END 2016-04-24 17:32 | disposition home or self-care (01) | DRG 813 ==
LOC: D.ER 15:10 → D.M2 20:27
PROVIDERS: Emergency Medicine; Family Medicine; ADMIT Family Medicine
DX: D69.6 Thrombocytopenia, unspecified (principal); K72.90 Hepatic failure, unspecified without coma; K74.60 Unspecified cirrhosis of liver; J44.9 Chronic obstructive pulmonary disease, unspecified; E11.9 Type 2 diabetes mellitus without complications; Z79.4 Long term (current) use of insulin; D70.9 Neutropenia, unspecified; D63.8 Anemia in other chronic diseases classified elsewhere

== ENCOUNTER 2016-05-13 02:53 | Emergency (ER) | payer MEDICARE ==
[2016-04-23 13:57] VITALS: BMI 19.1
== END 2016-05-13 03:25 | disposition home or self-care (01) ==
LOC: D.ER 02:53
DX: S01.81XA Laceration without foreign body of other part of head, initial encounter (principal); W19.XXXA Unspecified fall, initial encounter; Y93.89 Activity, other specified; Y92.019 Unspecified place in single-family (private) house as the place of occurrence of the external cause; E11.9 Type 2 diabetes mellitus without complications; D69.6 Thrombocytopenia, unspecified